=== PATIENT | male | born 1955 | race Caucasian/White ===

== ENCOUNTER 2018-09-23 09:32 | Emergency (ER) | payer OTHER ==
[~2018-09-23] VITALS: Wt 78.0 kg
[2018-09-23 09:36] VITALS: Wt 78.0 kg
[2018-09-23] MEDS ORDERED: KETOROLAC 30 MG INJ IV STA (10:08)
[2018-09-23] MEDS ORDERED: ONDANSETRON 4 MG INJ IV STA (10:08)
[2018-09-23] MEDS ORDERED: IBUP-1542 PO (11:56)
[2018-09-23] MEDS ORDERED: SENN-120 PO (11:56)
[2018-09-23] MEDS ORDERED: DOCU-144 PO (11:56)
--- NOTE | 2018-09-23 11:57 | ERD ---
ER Documentation Chief Complaint Chief Complaint AP X 1 MOS, DX H PYLORI, VOMITING HPI Patient is a 62-year-old male with no medical problems who presents with abdominal pain. The patient has had upper abdominal pain for the past 1 month. It was worsening. He denies fevers. He had vomiting but no diarrhea. He was recently diagnosed with H. pylori and has been taking medications for this. Upon review of old medical records this is the patient's first visit to the emergency department. He does not currently have a primary doctor. ROS All systems reviewed and are negative except as per history of present illness. Medications Home Meds Active Scripts Sennosides* (Senna Lax*) 8.6 Mg Tablet, 1 TAB PO DAILY, #30 TAB Prov:GODFREY SCHERER MD 09/23/18 Docusate Sodium* (Colace*) 100 Mg Capsule, 100 MG PO TID, #30 CAP Prov:GODFREY SCHERER MD 09/23/18 Ibuprofen* (Motrin*) 600 Mg Tab, 600 MG PO Q6H PRN for PAIN AND OR ELEVATED TEMP , #30 TAB Prov:GODFREY SCHERER MD 09/23/18 Reported Medications Bismuth Subsalicylate (Stomach Relief) 262 Mg Tab.chew, 262 MG PO Q6H, TAB.CHEW 09/23/18 Omeprazole* (Omeprazole*) 40 Mg Capsule.dr, 40 MG PO BID, #30 CAP 09/23/18 Amoxicillin* (Amoxicillin*) 500 Mg Cap, 1000 MG PO BID, #20 CAP START DATE 09/20/18 09/23/18 Metronidazole* (Metronidazole*) 500 Mg Tablet, 500 MG PO BID, TAB START DATE 09/20/18 09/23/18 Allergies Allergies: Coded Allergies: No Known Allergy (Unverified , 09/23/18) PMhx/Soc History of Surgery: No Anesthesia Reaction: No Hx Neurological Disorder: No Hx Respiratory Disorders: No Hx Cardiac Disorders: No Hx Psychiatric Problems: No Hx Miscellaneous Medical Probl: No Hx Alcohol Use: No Hx Substance Use: No Hx Tobacco Use: Yes Smoking Status: Current every day smoker FmHx Family History: No diabetes Physical Exam Vitals Vital Signs Date Temp Pulse Resp B/P (MAP) Pulse Ox O2 O2 Flow FiO2 Time Delivery Rate 09/23/18 98.1 79 18 128/77 96 Room Air 12:09 (94) 5/28/19 98.1 81 18 122/77 96 Room Air 11:30 (92) 09/23/18 98.1 99 18 177/83 99 09:36 (114) Physical Exam Const: No acute distress Head: Atraumatic Eyes: Normal Conjunctiva ENT: Normal External Ears, Nose and Mouth. Neck: Full range of motion. No meningismus. Resp: Clear to auscultation bilaterally Cardio: Regular rate and rhythm, no murmurs Abd: Soft, mild tenderness to palpation in the epigastric region without rebound or guarding Skin: No petechiae or rashes Back: No midline or flank tenderness Ext: No cyanosis, or edema Neur: Awake and alert Psych: Normal Mood and Affect Result Diagram: 09/23/18 1015 09/23/18 1030 Results 24 hrs Laboratory Tests Test 09/23/18 10:15 09/23/18 10:30 White Blood Count 10.3 10^3/ul Red Blood Count 5.25 10^6/ul Hemoglobin 14.8 g/dl Hematocrit 44.6 % Mean Corpuscular Volume 85.0 fl Mean Corpuscular Hemoglobin 28.2 pg Mean Corpuscular Hemoglobin Concent 33.2 g/dl Red Cell Distribution Width 15.6 % Platelet Count 301 10^3/UL Mean Platelet Volume 10.5 fl Immature Granulocytes % 0.400 % Neutrophils % 76.2 % Lymphocytes % 15.4 % Monocytes % 7.6 % Eosinophils % 0.0 % Basophils % 0.4 % Nucleated Red Blood Cells % 0.0 /100WBC Immature Granulocytes # 0.040 10^3/ul Neutrophils # 7.9 10^3/ul Lymphocytes # 1.6 10^3/ul Monocytes # 0.8 10^3/ul Eosinophils # 0.0 10^3/ul Basophils # 0.0 10^3/ul Nucleated Red Blood Cells # 0.0 10^3/ul Urine Color MIRELLA Urine Clarity CLEAR Urine pH 6.0 Urine Specific [place] 1.021 Urine Ketones NEGATIVE mg/dL Urine Nitrite NEGATIVE mg/dL Urine Bilirubin NEGATIVE mg/dL Urine Urobilinogen NEGATIVE mg/dL Urine Leukocyte Esterase TRACE Jose/ul Urine Microscopic RBC 5 /HPF Urine Microscopic WBC 1 /HPF Urine Mucus FEW /HPF Urine Hemoglobin 1+ mg/dL Urine Glucose NEGATIVE mg/dL Urine Total Protein 1+ mg/dl Sodium Level 138 mmol/L Potassium Level 4.2 mmol/L Chloride Level 99 mmol/L Carbon Dioxide Level 28 mmol/L Anion Gap 11 Blood Urea Nitrogen 12 mg/dl Creatinine 0.79 mg/dl Est Glomerular Filtrat Rate mL/min > 60 mL/min Glucose Level 135 mg/dl Calcium Level 10.0 mg/dl Total Bilirubin 0.6 mg/dl Direct Bilirubin 0.00 mg/dl Indirect Bilirubin 0.6 mg/dl Aspartate Amino Transf (AST/SGOT) 28 IU/L Alanine Aminotransferase (ALT/SGPT) 32 IU/L Alkaline Phosphatase 101 IU/L Troponin I < 0.012 ng/ml Total Protein 7.4 g/dl Albumin 4.3 g/dl Globulin 3.10 g/dl Albumin/Globulin Ratio 1.38 Lipase 105 U/L Current Medications Medications Dose Sig/Tessa Start Time Status Last (Trade) Ordered Route PRN Stop Time Admin Dose Reason Admin Ondansetron 4 mg ONCE STAT 09/23/18 DC 09/23/18 HCl (Zofran IV 10:08 10:38 Inj) 09/23/18 10:10 Ketorolac 30 mg ONCE STAT 09/23/18 DC 09/23/18 Tromethamine IV 10:08 10:37 (Toradol) 09/23/18 10:10 Procedures/MDM EKG read by me: Rate/Rhythm: Regular rate and rhythm at a rate of 80 Intervals: Normal Impression: No evidence of ischemia or arrhythmia CT abdomen pelvis read by radiology. Ultrasound of the gallbladder read by ra alexis. Smoking Cessation Therapy: Pt. was lectured for greater than 3 minutes on the health risks of continued smoking and the benefits of cessation. Patient is a 62-year-old male who presents with abdominal pain. Laboratory studies were basically normal. Ultrasound shows no cholecystitis. CT abdomen pelvis shows possible ileus versus obstruction with epiploic appendagitis. At this point I doubt appendicitis, cholecystitis, pancreatitis, or bowel obstruction. He said that he had a bowel movement today and feels much better after Toradol. He is otherwise well-appearing. I believe outpatient management is appropriate and he will be given a prescription for Colace, senna, and ibupr ofen. He can return for any worsening symptoms. Departure Diagnosis: Primary Impression: Abdominal pain Abdominal location: generalized Qualified Codes: R10.84 - Generalized abdominal pain Condition: Fair [facility] Usted se willard hecho un examen mdico de control que le indica que no est en gary condicin que requiera tratamiento urgente en el Departamento de Emergencia. Un estudio ms profundo y el tratamiento de jung condicin pueden esperar sin ningn riesgo hasta que usted sea atendida/o en el consultorio de jung mdico o gary clnica. Es responsabilidad suya arreglar gary aneesh para el seguimiento del manuel. MANEJO DE CONDICIONES NO URGENTES EN EL FUTURO 1) Si usted tiene un mdico de atencin primaria: Usted debera llamar a jung mdico de atencin primaria antes de venir al departamento de emergencia. Despus de las horas de consultorio, jung doctor o jung asociado/a est disponible por telfono. El mdico o enfermero de cynthia en el servicio telefnico puede asesorarle por cait medio para atender el problema, o manuel contrario se puede programar gary aneesh. 2) Si usted no tiene un mdico de atencin primaria: Llame al mdico o clnica de referencia que aparece abajo shane las horas de consultorio para hacer agry aneesh para que le vean. CLINICAS: [facility] [id number] [facility] [phone] [facility] [phone] [id number] [facility] [facility] [phone] [facility] [place] [phone] [address] [facility]. [phone] [address] Additional Instructions: Llame al doctor MAANA y patria gary ANEESH PARA DENTRO DE 1-2 FRAZIER.Dgale a la secretaria que nosotros le instruimos hacer esta aneesh.Avise o llame si jung condicin se empeora antes de la aneesh. Regresa aqui si peor o no mejor. GODFREY SCHERER MD September 23, 2018 11:57
[2018-09-23] MEDS ORDERED: METR-122 PO (12:05)
[2018-09-23] MEDS ORDERED: OMEP40CA6 PO (12:07)
[2018-09-23] MEDS ORDERED: AMOX500C2 PO (12:07)
[2018-09-23] MEDS ORDERED: [UNRECOGNIZED DRUG - CODE] PO (12:08)
[2018-09-23 12:09] VITALS: BP 128/77; PULSE 79; RESP 18
== END 2018-09-23 12:29 | disposition home or self-care (01) ==
LOC: E/R 09:32
DX: R10.84 Generalized abdominal pain (principal); F17.210 Nicotine dependence, cigarettes, uncomplicated; R11.10 Vomiting, unspecified
CPT/HCPCS: 36415; 74176; 76705; 80053; 81001; 83690; 84484; 85025; 93005; 96374; 96375; J1885; J2405; Z7502

== ENCOUNTER 2018-09-24 13:21 | Inpatient (IN) | payer OTHER ==
[~2018-09-24] VITALS: Ht 175.3 cm; Wt 77.0 kg
[~2018-09-24 13:21] MED LIST: AMOX500C2 PO; DOCU-144 PO; IBUP-1542 PO; METR-122 PO; OMEP40CA6 PO; SENN-120 PO; [UNRECOGNIZED DRUG - CODE] PO
[2018-09-24 13:24] VITALS: Ht 175.3 cm; Wt 77.0 kg
[2018-09-24] MEDS ORDERED: ONDANSETRON 4 MG INJ IV STA (14:51)
[2018-09-24] MEDS ORDERED: KETOROLAC 15 MG INJ IV STA (14:51)
[2018-09-24] MEDS ORDERED: SOD CHLORIDE 0.9% 1,000 ML IV STA (14:51)
--- NOTE | 2018-09-24 20:29 | ERD ---
ER Documentation Chief Complaint Chief Complaint INTERMITTENT ABD PAIN , VOMITING X 1 MONTH HPI 62-year-old male who presents to the emergency room with abdominal pain and vomiting. The patient has had several weeks of symptoms. He was seen here several weeks ago and had a CT that showed ileus. The patient describes persistent abdominal pain that is 8 out of 10 with associated nonbloody nonbilious emesis. Patient denies abdominal surgical history of history of hernia. No testicle pain or scrotal pain. 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 ROS All systems reviewed and are negative except as per history of present illness. Medications Home Meds Active Scripts Sennosides* (Senna Lax*) 8.6 Mg Tablet, 1 TAB PO DAILY, #30 TAB Prov:GODFREY SCHERER MD 09/23/18 Docusate Sodium* (Colace*) 100 Mg Capsule, 100 MG PO TID, #30 CAP Prov:GODFREY SCHERER MD 09/23/18 Ibuprofen* (Motrin*) 600 Mg Tab, 600 MG PO Q6H PRN for PAIN AND OR ELEVATED TEMP, #30 TAB Prov:GODFREY SCHERER MD 09/23/18 Reported Medications Bismuth Subsalicylate (Stomach Relief) 262 Mg Tab.chew, 262 MG PO Q6H, TAB.CHEW 09/23/18 Omeprazole* (Omeprazole*) 40 Mg Capsule.dr, 40 MG PO BID, #30 CAP 09/23/18 Amoxicillin* (Amoxicillin*) 500 Mg Cap, 1000 MG PO BID, #20 CAP START DATE 09/20/18 09/23/18 Metronidazole* (Metronidazole*) 500 Mg Tablet, 500 MG PO BID, TAB START DATE 09/20/18 09/23/18 Allergies Allergies: Coded Allergies: No Known Allergy (Unverified , 09/24/18) PMhx/Soc History of Surgery: No Anesthesia Reaction: No Hx Neurological Disorder: No Hx Respiratory Disorders: No Hx Cardiac Disorders: No Hx Psychiatric Problems: No Hx Miscellaneous Medical Probl: No Hx Alcohol Use: No Hx Substance Use: No Hx Tobacco Use: Yes Smoking Status: Never smoker FmHx Family History: No diabetes Physical Exam Vitals Vital Signs Date Temp Pulse Resp B/P (MAP) Pulse Ox O2 O2 Flow FiO2 Time Delivery Rate 09/24/18 73 25 142/80 91 Room Air 20:08 (100) 09/24/18 68 18 134/77 99 Room Air 18:26 (96) 09/24/18 98.1 65 18 155/81 98 Room Air 15:06 (105) 09/24/18 98.1 88 18 169/79 98 13:24 (109) Physical Exam General: Well developed, well nourished, no acute distress Head: Normocephalic, atraumatic. Eyes: Pupils equally reactive, EOM intact ENT: Moist mucous membranes Neck: Supple, no lymphadenopathy Respiratory: Lungs clear bilaterally, no distress Cardiovascular: RRR, no murmurs, rubs, or gallops Abdominal: Soft, protuberant, mild generalized tenderness without rebound or guarding : Deferred MSK: No edema, no unilateral swelling, 5/5 strength Neurologic: Alert and oriented, moving all extremities, normal speech, no focal weakness, no cerebellar signs Skin: No rash Psych: Normal mood Result Diagram: 09/24/18 1507 09/24/18 1507 Results 24 hrs Laboratory Tests Test 09/24/18 15:07 White Blood Count 10.7 10^3/ul Red Blood Count 5.21 10^6/ul Hemoglobin 14.6 g/dl Hematocrit 44.6 % Mean Corpuscular Volume 85.6 fl Mean Corpuscular Hemoglobin 28.0 pg Mean Corpuscular Hemoglobin Concent 32.7 g/dl Red Cell Distribution Width 15.6 % Platelet Count 286 10^3/UL Mean Platelet Volume 10.5 fl Immature Granulocytes % 0.500 % Neutrophils % 80.4 % Lymphocytes % 10.9 % Monocytes % 7.4 % Eosinophils % 0.3 % Basophils % 0.5 % Nucleated Red Blood Cells % 0.0 /100WBC Immature Granulocytes # 0.050 10^3/ul Neutrophils # 8.6 10^3/ul Lymphocytes # 1.2 10^3/ul Monocytes # 0.8 10^3/ul Eosinophils # 0.0 10^3/ul Basophils # 0.1 10^3/ul Nucleated Red Blood Cells # 0.0 10^3/ul Sodium Level 137 mmol/L Potassium Level 4.6 mmol/L Chloride Level 98 mmol/L Carbon Dioxide Level 30 mmol/L Anion Gap 9 Blood Urea Nitrogen 12 mg/dl Creatinine 0.80 mg/dl Est Glomerular Filtrat Rate mL/min > 60 mL/min Glucose Level 127 mg/dl Calcium Level 9.6 mg/dl Total Bilirubin 0.9 mg/dl Direct Bilirubin 0.00 mg/dl Indirect Bilirubin 0.9 mg/dl Aspartate Amino Transf (AST/SGOT) 48 IU/L Alanine Aminotransferase (ALT/SGPT) 48 IU/L Alkaline Phosphatase 119 IU/L Total Protein 7.8 g/dl Albumin 4.3 g/dl Globulin 3.50 g/dl Albumin/Globulin Ratio 1.22 Lipase 87 U/L Current Medications Medications Dose Sig/Tessa Start Time Status Last (Trade) Ordered Route PRN Stop Time Admin Dose Reason Admin Sodium 1,000 ml @ Q1H STAT 09/24/18 DC 09/24/18 Chloride 1,000 mls/hr IV 14:51 15:12 09/24/18 15:50 Ondansetron 4 mg ONCE STAT 09/24/18 DC 09/24/18 HCl (Zofran IV 14:51 15:11 Inj) 09/24/18 14:52 Ketorolac 15 mg ONCE STAT 09/24/18 DC 09/24/18 Tromethamine IV 14:51 15:12 (Toradol) 09/24/18 14:52 Procedures/MDM EKG, MONITORS, & DIAGNOSTIC IMAGING: CT a/p IMPRESSION: 1. MULTIPLE DILATED FLUID-FILLED LOOPS OF SMALL BOWEL, WITH TRANSITION POINT IN THE REGION OF THE ILEOCECAL JUNCTION. FINDINGS ARE HIGHLY CONCERNING FOR HIGH- GRADE SMALL BOWEL OBSTRUCTION. CANNOT EXCLUDE UNDERLYING STRICTURE OR MASS. FOLLOW-UP CT SCAN WITH IV AND ORAL CONTRAST MAY BE USEFUL FOR FURTHER EVALUATION. LARGE BOWEL LOOPS ARE PARTIALLY COLLAPSED. 2. Mild intra-abdominal/pelvic ascites. 3. Ill-defined 2.5 cm area of inflammatory changes within right upper quadrant and 2.7 cm ill-defined area of inflammatory changes within the left upper quadrant. Although this could represent omental infarct or epiploic appendagitis , malignancy is not completely excluded. Recommend follow-up contrast-enhanced CT scan. 4. No evidence of obstructive uropathy. 5. No evidence of free fluid or free air. No gross focal fluid collections. LAB INTERPRETATION: I reviewed the laboratory testing and it shows no evidence of acute process MEDICAL DECISION MAKING: Patient has persistent abdominal pain and decreased bowel movements in the setting of recent CT showing ileus. Concern for bowel obstruction. Repeat CT would be indicated. ER COURSE: * Laboratory testing reassuring but CT shows evidence of bowel obstruction near the ileocecal junction. Concern for possible malignancy or mass. Patient has been made n.p.o. NG tube placed. General surgeon notified. He will consult on the case. CONSULTATION: General surgeon, Dr. Gregory DISPOSITION PLAN: Medical surgical admission for management of small bowel obstruction Accepting care team and consultations: I discussed the current laboratory data, diagnostic imaging and emergency care provided. Admitting team: Dr. Alvarado Admitting team indication: Insurance directed Departure Diagnosis: Primary Impression: Small bowel obstruction Additional Impression: Generalized abdominal pain Condition: Stable ALDO COMBS MD September 24, 2018 20:29
[2018-09-24] MEDS ORDERED: NACL 0.9% 3 ML SYG IV SCH (21:30)
[2018-09-24] MEDS: FAMOTIDINE 20 MG INJ IV SCH (21:30)
[2018-09-24] MEDS ORDERED: KETOROLAC 15 MG INJ IV PRN (21:30)
[2018-09-24] MEDS: HEPARIN 5,000 UNIT/1 ML VIAL SC SCH (21:30)
[2018-09-24] MEDS ORDERED: ONDANSETRON 4 MG INJ IV PRN (21:30)
[2018-09-24] MEDS ORDERED: D5-NS + KCL 20 MEQ 1,000 ML IV SCH (21:30)
--- NOTE | 2018-09-24 21:40 | CONS ---
Assessment/Plan Assessment/Plan Hospital Course (Demo Recall) 62-year-old male who presents to the emergency room with abdominal pain and vomiting. CT scan showed dilated loops of small bowel with possible transitional point at the ileocecal valve that the mass or stricture cannot be ruled out. There is also free fluid above the right lobe of the liver. There is no biliary dilatation and no free air in the biliary tree. Patient is not tachycardic and his white count is normal. There is no lactate no evidence of acidosis. Given the above-mentioned findings I decided to give the patient 5 nasogastric suction and conservative treatment observation till tomorrow. If there is no improvement will take him to exploration Problems: (1) Small bowel obstruction Status: Acute (2) Abdominal pain Status: Acute Assessment/Plan (Daily) Small bowel obstruction until proven otherwise. Trial of conservative treatment. Will reassess tomorrow Consultation Date/Type/Reason Admit Date/Time Date of Consultation: September 24, 2018 Type of Consult Surgical Date/Time of Note DATE: 09/24/18 TIME: 21:35 Hx of Present Illness 62-year-old male with a history of back abdominal pain nausea and vomiting for the last few days. He was seen in the emergency room yesterday with the same complaints and CT scan was performed that showed slightly dilated loops of small bowel that was read as paralytic ileus. Patient was discharged home. However he continued to experience severe abdominal distention pain and vomiting so he decided to come to emergency room again. Patient also noted few episodes of diarrhea but his last bowel movement was yesterday and this the last time he passed gas. Constitutional: no complaints, improved Eyes: no complaints ENT: no complaints Respiratory: no complaints Cardiovascular: no complaints Gastrointestinal: no complaints, pain, nausea, vomiting, other (Abdominal distention) Musculoskeletal: no complaints Skin: no complaints Neurologic: no complaints Endocrine: no complaints Lymphatic: no complaints Psychological: no complaints, nl mood/affect Immunologic: no complaints Past Medical History Medical History: no pertinent history Home Meds Discontinued Reported Medications Bismuth Subsalicylate (Stomach Relief) 262 Mg Tab.chew, 262 MG PO Q6H, TAB.CHEW 09/23/18 Omeprazole* (Omeprazole*) 40 Mg Capsule.dr, 40 MG PO BID, #30 CAP 09/23/18 Amoxicillin* (Amoxicillin*) 500 Mg Cap, 1000 MG PO BID, #20 CAP START DATE 09/20/18 09/23/18 Metronidazole* (Metronidazole*) 500 Mg Tablet, 500 MG PO BID, TAB START DATE 09/20/18 09/23/18 Discontinued Scripts Sennosides* (Senna Lax*) 8.6 Mg Tablet, 1 TAB PO DAILY, #30 TAB Prov:GODFREY SCHERER MD 09/23/18 Docusate Sodium* (Colace*) 100 Mg Capsule, 100 MG PO TID, #30 CAP Prov:GODFREY SCHERER MD 09/23/18 Ibuprofen* (Motrin*) 600 Mg Tab, 600 MG PO Q6H PRN for PAIN AND OR ELEVATED TEMP, #30 TAB Prov:GODFREY SCHERER MD 09/23/18 Medications Current Medications IV Flush (NS 3 ml) 3 ml PER PROTOCOL IV ; Start 09/24/18 at 21:30 Ondansetron HCl (Zofran Inj) 4 mg Q6H PRN IV NAUSEA/VOMITING; Start 09/24/18 at 21:30 Acetaminophen (Tylenol Supp) 650 mg Q6H PRN CA .PAIN 1-3 OR TEMP; Start 09/24/18 at 21:30 Famotidine (Pepcid Iv) 20 mg Q12 IV ; Start 09/24/18 at 21:30 Heparin Sodium (Porcine) (Heparin (5000 Units/1ml)) 5,000 unit Q12 SC ; Start 09/24/18 at 21:30 Potassium Chloride/Dextrose/ Sod Cl 1,000 ml @ 100 mls/hr Q10H IV ; Start 09/24/18 at 21:30 Ketorolac Tromethamine (Toradol) 15 mg Q6 PRN IV PAIN; Start 09/24/18 at 21:30; Stop 09/27/18 at 21:29 Allergies: Coded Allergies: No Known Allergy (Unverified , 09/24/18) Past Surgical History Past Surgical Hx: no surgical history Family History Significant Family History: no pertinent family hx Social History Smoking Status: Never smoker Exam/Review of Systems Exam Vitals Vital Signs Date Temp Pulse Resp B/P (MAP) Pulse Ox O2 O2 Flow FiO2 Time Delivery Rate 09/24/18 73 25 142/80 91 Room Air 20:08 (100) 09/24/18 98.1 15:06 Constitutional: alert, oriented, well developed Psych: no complaints, nl mood/affect Head: normocephalic, atraumatic Eyes: nl conjunctiva, EOMI, nl lids, nl sclera, PERRL ENMT: nl external ears & nose, nl lips & teeth, nl nasal mucosa & septum Neck: supple, non-tender Respiratory: clear to auscultation, normal air movement Cardiovascular: regular rate and rhythm, nl pulses Gastrointestinal: soft, nl liver, spleen, non-tender, other (The abdomen is mildly distended however not tender at all.) Musculoskeletal: nl extremities to inspection, nl gait and stance Extremities: normal pulses 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, nl mental status, nl speech, nl strength Skin: nl turgor; No rash or lesions Lymph: nl lymph nodes Results Result Diagram: 09/24/18 1507 09/24/18 1507 Results 24hrs Laboratory Tests Test 09/24/18 15:07 White Blood Count 10.7 Red Blood Count 5.21 Hemoglobin 14.6 Hematocrit 44.6 Mean Corpuscular Volume 85.6 Mean Corpuscular Hemoglobin 28.0 L Mean Corpuscular Hemoglobin Concent 32.7 Red Cell Distribution Width 15.6 H Platelet Count 286 Mean Platelet Volume 10.5 H Immature Granulocytes % 0.500 H Neutrophils % 80.4 H Lymphocytes % 10.9 L Monocytes % 7.4 Eosinophils % 0.3 Basophils % 0.5 Nucleated Red Blood Cells % 0.0 Immature Granulocytes # 0.050 H Neutrophils # 8.6 H Lymphocytes # 1.2 Monocytes # 0.8 Eosinophils # 0.0 Basophils # 0.1 Nucleated Red Blood Cells # 0.0 Sodium Level 137 Potassium Level 4.6 Chloride Level 98 Carbon Dioxide Level 30 Anion Gap 9 Blood Urea Nitrogen 12 Creatinine 0.80 Est Glomerular Filtrat Rate mL/min > 60 Glucose Level 127 Calcium Level 9.6 Total Bilirubin 0.9 Direct Bilirubin 0.00 Indirect Bilirubin 0.9 Aspartate Amino Transf (AST/SGOT) 48 #H Alanine Aminotransferase (ALT/SGPT) 48 Alkaline Phosphatase 119 Total Protein 7.8 Albumin 4.3 Globulin 3.50 H Albumin/Globulin Ratio 1.22 Lipase 87 Medications Medication Current Medications IV Flush (NS 3 ml) 3 ml PER PROTOCOL IV ; Start 09/24/18 at 21:30 Ondansetron HCl (Zofran Inj) 4 mg Q6H PRN IV NAUSEA/VOMITING; Start 09/24/18 at 21:30 Acetaminophen (Tylenol Supp) 650 mg Q6H PRN CA .PAIN 1-3 OR TEMP; Start 09/24/18 at 21:30 Famotidine (Pepcid Iv) 20 mg Q12 IV ; Start 09/24/18 at 21:30 Heparin Sodium (Porcine) (Heparin (5000 Units/1ml)) 5,000 unit Q12 SC ; Start 09/24/18 at 21:30 Potassium Chloride/Dextrose/ Sod Cl 1,000 ml @ 100 mls/hr Q10H IV ; Start 09/24/18 at 21:30 Ketorolac Tromethamine (Toradol) 15 mg Q6 PRN IV PAIN; Start 09/24/18 at 21:30; Stop 09/27/18 at 21:29 TIFFANY WILCOX MD September 24, 2018 21:40
[2018-09-24 23:00] VITALS: BP 153/72; PULSE 75; RESP 18
[2018-09-25] VITALS (27 sets, daily range): BP systolic 101–169; BP diastolic 56–86; PULSE 66–100; RESP 13–21
[2018-09-25] MEDS: FAMOTIDINE 20 MG INJ IV SCH ×3 (00:10→22:28)
[2018-09-25] MEDS: HEPARIN 5,000 UNIT/1 ML VIAL SC SCH ×3 (00:16→21:00)
[2018-09-25] MEDS: DEXTROSE 5%-0.9% NACL 1,000 ML IV SCH ×3 (00:19→20:00)
[2018-09-25] MEDS: ALBUTEROL/IPRATROPIUM (NEB) 3 ML AMP HHN SCH ×3 (13:00→21:18)
--- NOTE | 2018-09-25 13:08 | CONS ---
Assessment/Plan Assessment/Plan Hospital Course (Demo Recall) Preoperative cardiac risk stratification Small bowel obstruction Tobacco use -Patient plan for abdominal surgery -As mentioned in history, patient with excellent exercise capacity with no exert ional symptoms -No significant ischemic abnormalities on ECG. -Patient is at a low to intermediate risk for any untoward cardiac events for abdominal surgery. The benefits likely outweigh the risks. Consultation Date/Type/Reason Admit Date/Time Type of Consult Cardiology Reason for Consultation Preoperative cardiac risk stratification Date/Time of Note DATE: 09/25/18 TIME: 13:00 Hx of Present Illness This is a 62-year-old male with no significant past medical history who presents with worsening abdominal pain to the emergency room. Patient with presumed small bowel obstruction as per medical records and is possibly plan for abdominal surgery. Cardiology consultation is requested for preoperative cardiac risk stratification. 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 With these activities, he denies exertional chest pain, shortness of breath, palpitations, dizziness, or syncope. He denies any cardiac history or procedures. 12 point review of systems was performed with all pertinent positives and negatives mentioned above and all else is negative Past Medical History Medical History: no pertinent history Home Meds Discontinued Reported Medications Bismuth Subsalicylate (Stomach Relief) 262 Mg Tab.chew, 262 MG PO Q6H, TAB.CHEW 09/23/18 Omeprazole* (Omeprazole*) 40 Mg Capsule.dr, 40 MG PO BID, #30 CAP 09/23/18 Amoxicillin* (Amoxicillin*) 500 Mg Cap, 1000 MG PO BID, #20 CAP START DATE 09/20/18 09/23/18 Metronidazole* (Metronidazole*) 500 Mg Tablet, 500 MG PO BID, TAB START DATE 09/20/18 09/23/18 Discontinued Scripts Sennosides* (Senna Lax*) 8.6 Mg Tablet, 1 TAB PO DAILY, #30 TAB Prov:GODFREY SCHERER MD 09/23/18 Docusate Sodium* (Colace*) 100 Mg Capsule, 100 MG PO TID, #30 CAP Prov:GODFREY SCHERER MD 09/23/18 Ibuprofen* (Motrin*) 600 Mg Tab, 600 MG PO Q6H PRN for PAIN AND OR ELEVATED TEMP, #30 TAB Prov:GODFREY SCHERER MD 09/23/18 Medications Current Medications IV Flush (NS 3 ml) 3 ml PER PROTOCOL IV ; Start 09/24/18 at 21:30 Ondansetron HCl (Zofran Inj) 4 mg Q6H PRN IV NAUSEA/VOMITING; Start 09/24/18 at 21:30 Acetaminophen (Tylenol Supp) 650 mg Q6H PRN [place] .PAIN 1-3 OR TEMP; Start 09/24/18 at 21:30 Famotidine (Pepcid Iv) 20 mg Q12 IV Last administered on 09/25/18at 08:56; Admin Dose 20 MG; Start 09/24/18 at 21:30 Heparin Sodium (Porcine) (Heparin (5000 Units/1ml)) 5,000 unit Q12 SC Last administered on 09/25/18at 00:16; Admin Dose 5,000 UNIT; Start 09/24/18 at 21:30 Ketorolac Tromethamine (Toradol) 15 mg Q6 PRN IV PAIN; Start 09/24/18 at 21:30; Stop 09/27/18 at 21:29 Dextrose/Sodium Chloride 1,000 ml @ 100 mls/hr Q10H IV Last administered on 09/25/18at 10:37; Admin Dose 100 MLS/HR; Start 09/25/18 at 00:00 Albuterol/ Ipratropium (Duoneb) 3 ml Q4H RESP THERAPY HHN ; Start 09/25/18 at 13:00 Allergies: Coded Allergies: No Known Allergy (Unverified , 09/24/18) Past Surgical History Past Surgical Hx: no surgical history Social History Smoking Status: Current some day smoker 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 Exam/Review of Systems Vital Signs Vitals Vital Signs Date Temp Pulse Resp B/P (MAP) Pulse Ox O2 O2 Flow FiO2 Time Delivery Rate 09/25/18 99.0 66 18 132/69 95 Room Air 07:52 (90) Intake and Output 09/24/18 09/24/18 09/25/18 1515:00 23:00 07:00 IntakeIntake Total 700 ml OutputOutput Total 300 ml 100 ml BalanceBalance -300 ml 600 ml Exam Constitutional: alert, oriented, well developed (No apparent distress) ENMT: other (NG tube present) Respiratory: clear to auscultation, normal air movement Cardiovascular: regular rate and rhythm (S1-S2 heard) Gastrointestinal: soft, distended, tender Extremities: other (No significant edema) Labs Result Diagram: 09/25/18 0444 09/25/18 0444 Results 24hrs Laboratory Tests Test 09/24/18 15:07 09/25/18 04:44 09/25/18 10:19 White Blood Count 10.7 10.1 Red Blood Count 5.21 4.82 Hemoglobin 14.6 13.6 L Hematocrit 44.6 41.7 L Mean Corpuscular Volume 85.6 86.5 Mean Corpuscular Hemoglobin 28.0 L 28.2 L Mean Corpuscular Hemoglobin Concent 32.7 32.6 Red Cell Distribution Width 15.6 H 15.8 H Platelet Count 286 268 Mean Platelet Volume 10.5 H 11.4 H Immature Granulocytes % 0.500 H 0.500 H Neutrophils % 80.4 H 77.6 H Lymphocytes % 10.9 L 12.2 L Monocytes % 7.4 8.0 Eosinophils % 0.3 1.2 Basophils % 0.5 0.5 Nucleated Red Blood Cells % 0.0 0.0 Immature Granulocytes # 0.050 H 0.050 H Neutrophils # 8.6 H 7.9 H Lymphocytes # 1.2 1.2 Monocytes # 0.8 0.8 Eosinophils # 0.0 0.1 Basophils # 0.1 0.1 Nucleated Red Blood Cells # 0.0 0.0 Sodium Level 137 137 Potassium Level 4.6 4.3 Chloride Level 98 102 Carbon Dioxide Level 30 29 Anion Gap 9 6 Blood Urea Nitrogen 12 11 Creatinine 0.80 0.78 Est Glomerular Filtrat Rate mL/min > 60 > 60 Glucose Level 127 119 Calcium Level 9.6 8.7 Total Bilirubin 0.9 Direct Bilirubin 0.00 Indirect Bilirubin 0.9 Aspartate Amino Transf (AST/SGOT) 48 #H Alanine Aminotransferase (ALT/SGPT) 48 Alkaline Phosphatase 119 Total Protein 7.8 Albumin 4.3 Globulin 3.50 H Albumin/Globulin Ratio 1.22 Lipase 87 Hemoglobin A1c 5.8 Thyroid Stimulating Hormone (TSH) 1.130 Prothrombin Time 12.7 Prothrombin Time Ratio 1.0 INR International Normalized Ratio 0.94 Activated Partial Thromboplast Time 25.5 Imaging Imaging ECG sinus rhythm at 64 bpm, poor R wave progression, QRS 65 ms, no significant ischemic ST abnormalities Medications Medications Current Medications IV Flush (NS 3 ml) 3 ml PER PROTOCOL IV ; Start 09/24/18 at 21:30 Ondansetron HCl (Zofran Inj) 4 mg Q6H PRN IV NAUSEA/VOMITING; Start 09/24/18 at 21:30 Acetaminophen (Tylenol Supp) 650 mg Q6H PRN [place] .PAIN 1-3 OR TEMP; Start 09/24/18 at 21:30 Famotidine (Pepcid Iv) 20 mg Q12 IV Last administered on 09/25/18at 08:56; Admin Dose 20 MG; Start 09/24/18 at 21:30 Heparin Sodium (Porcine) (Heparin (5000 Units/1ml)) 5,000 unit Q12 SC Last administered on 09/25/18at 00:16; Admin Dose 5,000 UNIT; Start 09/24/18 at 21:30 Ketorolac Tromethamine (Toradol) 15 mg Q6 PRN IV PAIN; Start 09/24/18 at 21:30; Stop 09/27/18 at 21:29 Dextrose/Sodium Chloride 1,000 ml @ 100 mls/hr Q10H IV Last administered on 09/25/18at 10:37; Admin Dose 100 MLS/HR; Start 09/25/18 at 00:00 Albuterol/ Ipratropium (Duoneb) 3 ml Q4H RESP THERAPY N ; Start 09/25/18 at 13:00 Arron Carl DO September 25, 2018 13:08
--- NOTE | 2018-09-25 14:39 | HP ---
DATE OF ADMISSION: 09/25/2018 CHIEF COMPLAINT: Abdominal pain associated with vomiting and diarrhea. HISTORY OF PRESENT ILLNESS: A 62-year-old male with history of heavy tobacco use, presented to the e mergency room with 2 weeks of diffuse abdominal discomfort associated with vomiting and diarrhea. Th e patient denies hematemesis. No bright red blood per rectum or melena. The patient has not had any flatus or bowel movements since admission. Initial evaluation included a CAT scan of the abdomen an d pelvis. This study showed multiple dilated fluid-filled loops of small bowel with transition point in the region of the ileocecal junction. Findings were consistent for high-grade small-bowel obstru ction. Despite NG tube suction, his symptoms have not improved. PAST MEDICAL HISTORY: COPD. PAST SURGICAL HISTORY: None. SOCIAL HISTORY: The patient smokes 1 pack of cigarettes per day and drinks alcohol on social occasio ns. PHYSICAL EXAMINATION: GENERAL: Well-developed, well-nourished male who is in no apparent distress. VITAL SIGNS: Stable. He is afebrile. HEENT: Extraocular muscles are intact. Pupils are equal and reactive to light bilaterally. Sclerae are anicteric. Oropharynx is clear and moist. NECK: Supple. No JVD, no carotid bruits. LUNGS: Mild expiratory wheezes bilaterally. CARDIAC: Regular rate and rhythm. ABDOMEN: Soft, nontender, nondistended, hypoactive bowel sounds. EXTREMITIES: No clubbing, cyanosis or edema. NEUROLOGICAL: Nonfocal. LABORATORY DATA: WBC 10.1, hemoglobin 13.6, platelet count 268,000. Basic metabolic panel within no rmal limits. Liver function test within normal limits. Albumin 4.3. TSH 1.13. Hemoglobin A1c is 5 .8. ASSESSMENT: 1. A 62-year-old male with 2 weeks of abdominal pain associated with vomiting and diarrhea. He is n ow found to have small-bowel obstruction. We need to rule out colonic mass or adhesion. 2. Chronic obstructive pulmonary disease with mild exacerbation. 3. Chronic smoker. PLAN: Admit to med/surg. Keep n.p.o. NG tube to suction. DuoNeb unit dose q.4 hours. 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 Wilcox. Plan of care was discussed with the patient and his renee ghter at the bedside. Dictated By: LOY SONI/NTS Conf#: [id number] DID#: [id number] CC: GUSTAVO LORENZO MD; TIFFANY WILCOX MD;*EndCC*
--- NOTE | 2018-09-25 16:01 | PN ---
Date/Time of Note Date/Time of Note DATE: 09/25/18 TIME: 15:58 Assessment/Plan Lines/Catheters IV C[facility]ter Type (from [facility]): Peripheral IV Assessment/Plan Chief Complaint/Hosp Course Patient is patient is more than 24 hours after admission for small bowel obstruction without previous surgery. In spite of the lack of the ischemia signs I feel that the patient needs to go to the surgery soon as possible since there is no improvement and the CT scan findings are consistent with the distal complete small bowel obstruction. Assessment/Plan Patient is consented for exploratory laparoscopy possible laparotomy possible bowel resection. We discussed risks and benefits were discussed possible side effects, possible complications including but not limited to bleeding, infection, injury to other organs, anesthesia complication, patient understood risk and benefits and wished to proceed. Subjective 24 Hr Interval Summary There is no evidence of improvement overnight, patient still with signs of bowel obstruction, no flatus no bowel movements, NG tube drains feculent material. However subjectively patient feels comfortable. Feeding: NPO Pain Control: mild Exam/Review of Systems Vital Signs Vitals Vital Signs Date Temp Pulse Resp B/P (MAP) Pulse Ox O2 O2 Flow FiO2 Time Delivery Rate 09/25/18 99.6 69 18 134/65 96 Room Air 14:59 (88) Intake and Output 09/24/18 09/24/18 09/25/18 1515:00 23:00 07:00 IntakeIntake Total 700 ml OutputOutput Total 300 ml 100 ml BalanceBalance -300 ml 600 ml Exam Constitutional: alert, oriented, well developed Psych: no complaints, nl mood/affect Head: normocephalic, atraumatic Eyes: nl conjunctiva, EOMI, nl lids, nl sclera ENMT: nl external ears & nose, nl lips & teeth, nl nasal mucosa & septum, mucosa pink and moist Neck: supple, non-tender Respiratory: clear to auscultation, normal air movement Cardiovascular: regular rate and rhythm, nl pulses Gastrointestinal: soft, nl liver, spleen, distended, other (Mild tenderness around the umbilicus.) Musculoskeletal: nl extremities to inspection, nl gait and stance Extremities: normal pulses Neurological: SWINE NUTRITIONIST II-XII intact, nl mental status, nl speech, nl strength Skin: nl turgor, rash or lesions Lymph: nl lymph nodes Results Result Diagram: 09/25/1844309/25/18443 TIFFANY WILCOX MD September 25, 2018 16:01
--- NOTE | 2018-09-25 16:47 | PREAC ---
Date/Time of Note Date/Time of Note DATE: 09/25/18 TIME: 16:45 Anesthesia Eval and Record Evaluation Time Pre-Procedure Interview DATE: 09/25/18 TIME: 16:45 Age 62 Sex male NPO: 8 hrs Preoperative diagnosis Abdominal pain Planned procedure Exploratory laparotomy Past Medical History Past Medical History: Includes GI: GERD, Morbid obesity Surgery & Anesthesia Issues No known issue Meds Anticoagulation: No Beta Sushil within 24 hr: No Reason Beta Sushil not given: Pt. not on B-Sushil Discontinued Reported Medications Bismuth Subsalicylate (Stomach Relief) 262 Mg Tab.chew, 262 MG PO Q6H, TAB.CHEW 09/23/18 Omeprazole* (Omeprazole*) 40 Mg Capsule.dr, 40 MG PO BID, #30 CAP 09/23/18 Amoxicillin* (Amoxicillin*) 500 Mg Cap, 1000 MG PO BID, #20 CAP START DATE 09/20/18 09/23/18 Metronidazole* (Metronidazole*) 500 Mg Tablet, 500 MG PO BID, TAB START DATE 09/20/18 09/23/18 Discontinued Scripts Sennosides* (Senna Lax*) 8.6 Mg Tablet, 1 TAB PO DAILY, #30 TAB Prov:GODFREY SCHERER MD 09/23/18 Docusate Sodium* (Colace*) 100 Mg Capsule, 100 MG PO TID, #30 CAP Prov:GODFREY SCHERER MD 09/23/18 Ibuprofen* (Motrin*) 600 Mg Tab, 600 MG PO Q6H PRN for PAIN AND OR ELEVATED TEMP, #30 TAB Prov:GODFREY SCHERER MD 09/23/18 Current Medications IV Flush (NS 3 ml) 3 ml PER PROTOCOL IV ; Start 09/24/18 at 21:30 Ondansetron HCl (Zofran Inj) 4 mg Q6H PRN IV NAUSEA/VOMITING; Start 09/24/18 at 21:30 Acetaminophen (Tylenol Supp) 650 mg Q6H PRN [place] .PAIN 1-3 OR TEMP; Start 09/24/18 at 21:30 Famotidine (Pepcid Iv) 20 mg Q12 IV Last administered on 09/25/18at 08:56; Admin Dose 20 MG; Start 09/24/18 at 21:30 Heparin Sodium (Porcine) (Heparin (5000 Units/1ml)) 5,000 unit Q12 SC Last administered on 09/25/18at 00:16; Admin Dose 5,000 UNIT; Start 09/24/18 at 21:30 Ketorolac Tromethamine (Toradol) 15 mg Q6 PRN IV PAIN; Start 09/24/18 at 21:30; Stop 09/27/18 at 21:29 Dextrose/Sodium Chloride 1,000 ml @ 100 mls/hr Q10H IV Last administered on 09/25/18at 10:37; Admin Dose 100 MLS/HR; Start 09/25/18 at 00:00 Albuterol/ Ipratropium (Duoneb) 3 ml Q4H RESP THERAPY HHN Last administered on 09/25/18at 16:04; Admin Dose 3 ML; Start 09/25/18 at 13:00 Meds reviewed: Yes Allergies Coded Allergies: No Known Allergy (Unverified , 09/24/18) Allergies Reviewed: Yes Labs/Studies Labs Reviewed: Reviewed by anesthesiologist Result Diagram: 09/25/18 0444 09/25/18 0444 Laboratory Tests 09/25/18 04:44 test: N/A Studies: ECG Pre-procedure Exam Last vitals Vital Signs Date Temp Pulse Resp B/P (MAP) Pulse Ox O2 O2 Flow FiO2 Time Delivery Rate 09/25/18 99.6 69 18 134/65 96 Room Air 14:59 (88) Airway: Adequate mouth opening, Adequate thyromental dist Mallampati: Mallampati III Teeth: Normal Lung: Normal Heart: Normal ASA Physical Status ASA physical status: 3 Emergency: E Planned Anesthetic General/MAC: ETT Neuraxial: Spinal Planned Pain Management Sub-arachniod narcotics, Single shot nerve block, Local by surgeon Pre-operative Attestations Prior to commencing anesthesia and surgery, the patient was re-evaluated, there was verification of: *The patient's identity *The results of appropriate recent lab work and preoperative vital signs *The above evaluation not changing prior to induction *Anesthetic plan, risk benefits, alternative and complications discussed with patient/family; questions answered; patient/family understands, accepts and wishes to proceed. YARED MATA MD September 25, 2018 16:47
[2018-09-25] MEDS ORDERED: MIDAZOLAM 1 MG/ML 2 ML INJ ONE (16:51)
[2018-09-25] MEDS ORDERED: BUPIVACAINE 0.5%/EPI (SDV) 10 ML INJ ONE ×2 (16:54)
[2018-09-25] MEDS ORDERED: PIPER-TAZO 3.375 GM IV (PMX) 100 ML ONE (17:10)
--- NOTE | 2018-09-25 17:24 | RADRPT ---
Echocardiogram Report Patient Name: Guadalupe FRAUSTOnt ID: [id number] : 1955 (62y 10m)Study Date: 09/25/2018 11:34:41 AM Gender: MAccession #: [id number] Tech: Dilan Hastings [facility] Location: [id number] Ref.Physician: LOY ADAME Height(Cm): BSA: Weight(Kg): Quality: AdequateOrder Physician: LOY ADAME Account #: Procedures: Echocardiographic Report: Transthoracic echocardiogram with complete 2D, M-Mode, and doppler examination. Indications: Evaluate Left Ventricular function. Measurements: 2D/M Mode Doppler Measurement Value Normal Range Measurement Value Normal Range LVIDd 2D 4.8 [ 4.2 - 5.8 ] cm AV Peak Boaz 1.5 [ 100.0 - 170.0 ] cm/sec LVIDs 2D 2.4 [ 2.5 - 4.0 ] cm AV Peak PG 10.0 [ 2.0 - 9.0 ] mmHg LVPWd 2D 0.9 [ 0.6 - 1.0 ] cm LVOT Peak Boaz 1.2 [ 70.0 - 110.0 ] cm/sec IVSd 2D 0.9 [ 0.6 - 1.0 ] cm LVOT Peak PG 6.0 [ 2.0 - 6.0 ] mmHg AoR Diam 2D 2.6 [ 2.6 - 3.4 ] cm MV E Peak Boaz 0.7 [ 60.0 - 130.0 ] cm/sec EDV 2D 107.0 [ 62.0 - 150.0 ] ml MV A Peak Boaz 0.9 [ 100.0 - 120.0 ] cm/sec ESV 2D 20.2 [ 21.0 - 61.0 ] ml MV E/A 0.8 [ 0.8 - 1.5 ] ratio EF 2D 81.1 [ 52.0 - 72.0 ] percent MV Decel Time 215 [ 104 - 258 ] msec LA Dimen 2D 3.3 [ 3.0 - 4.0 ] cm Lat E` Boaz 0.1 [ 10.0 - 15.0 ] cm/sec Lateral E/E` 5.2 [ 1.0 - 2.0 ] ratio MV E/A 0.8 [ 0.8 - 1.5 ] ratio Findings: Left Ventricle: Normal left ventricular systolic function. Normal left ventricular cavity size. Normal left ventricular wall thickness. Ejection fraction is visually estimated at 65 %. Tissue Doppler/Mitral Doppler indices are consistent with impaired relaxation (Stage I diastolic dysfunction). Right Ventricle: Normal right ventricular size. Normal right ventricular systolic function. Left Atrium: The left atrium is normal in size. Right Atrium: The right atrium is normal in size. Mitral Valve: Normal appearance and function of the mitral valve with trace physiologic regurgitation. Aortic Valve: Normal appearance of the aortic valve. No significant aortic stenosis or insufficiency. Tricuspid Valve: Normal appearance and function of the tricuspid valve with trace physiologic regurgitation. Pulmonic Valve: Pulmonic valve not well visualized. Pericardium: Normal pericardium with no significant pericardial effusion. Aorta: Normal aortic root. IVC: Normal size and normal respiratory collapse consistent with normal right atrial pressure. Conclusions: Normal left ventricular systolic function. Normal left ventricular cavity size. Normal left ventricular wall thickness. Ejection fraction is visually estimated at 65 %. Tissue Doppler/Mitral Doppler indices are consistent with impaired relaxation (Stage I diastolic dysfunction). Normal right ventricular size. Normal right ventricular systolic function. The left atrium is normal in size. The right atrium is normal in size. No significant valvular stenosis or regurgitation seen. Normal pericardium with no significant pericardial effusion. Electronically Signed By: Arron Carl 2018-09-25 17:23:39 PDT
[2018-09-25] MEDS ORDERED: NEOSTIGMINE 3 MG/3 ML SYRINGE ONE (18:27)
[2018-09-25] MEDS ORDERED: ROCURONIUM 50 MG INJ ONE (18:27)
[2018-09-25] MEDS ORDERED: LIDOCAINE 2% (SDV) 5 ML INJ ONE (18:27)
[2018-09-25] MEDS ORDERED: ONDANSETRON 4 MG INJ ONE (18:27)
[2018-09-25] MEDS ORDERED: ETOMIDATE 20 MG INJ ONE (18:27)
[2018-09-25] MEDS ORDERED: GLYCOPYRROLATE 0.4 MG INJ ONE (18:27)
[2018-09-25] MEDS ORDERED: ROPIVACAINE 0.5 % 30 ML VIAL ONE (18:37)
--- NOTE | 2018-09-25 18:55 | OPR ---
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 Procedure Description Patient was brought to operating room after detailed discussion with him and the family regarding the nature of the procedure. We discussed risks and benefits we discussed possible complications including but not limited to infection bleeding injury to other organs leakage cardiac and pulmonary complications. Patient was positioned supine general endotracheal anesthesia was induced. The abdomen was prepped and draped in usual sterile fashion. The urinary bladder was decompressed with a Holden catheter. Patient had already NG tube placed previously. Antibiotic antibiotics prophylaxis was initiated. After that the Veress needle was placed in the left subcostal position and the abdomen was insufflated with CO2 up to 15 mmHg. After this 5 mm trocar was placed in the left paramedian position and 5 mm camera was used to visualize the contents of abdominal cavity. Additional 5 mm trocar was placed in the right subcostal position. The abdomen was inspected and the right colon mass became visible that cause complete obstruction of small bowel. The decision was made to convert to open procedure. Abdomen was desufflated trochars were removed. Midline laparotomy was performed. The wound retractor was placed along with wound protector. I started procedure by removing most of the dilated small bowel outside the abdominal cavity in order to achieve access to the right colon the small bowel bowel was very dilated and it was very difficult to visualize the right colon. However I was succeeded to perform mobilization of the right colon starting from the ileocecal valve up to hip hepatic flexure. The tumor was found to be invading the abdominal wall that I used blunt dissection to dissect the tumor off the abdominal wall. That resulted in small perforation but which was immediately controlled. No spillage or cleared. After mobilized the right colon I clearly identified the right ureter that are completely preserved. The residual tumor that was adjusting to the abdominal wall I excised completely in addition. After that I performed the resection of the terminal ileum approximately 15 cm distally to the ileocecal valve and the right colon was divided at the mid between cecum and the hepatic flexure. After that the small bowel was brought along the right colon and [id number] anatomically or N2 and functional anastomosis was performed using ASHWIN 100 mm. The common enterotomy was closed using TA 60 mm stapler. The mesentery was approximated with running 2-0 Vicryl suture. After the bowel was appropriately oriented and the small bowel was returned back to the abdominal cavity. The abdominal cavity was irrigated with copious amount of warm normal saline. After that the mid laparotomy was closed by running PDS suture and the skin was approximated with skin stapler. Patient tolerated procedure well was extubated after tap block was performed by anesthesiologist. Treatments and sponge counts were correct x2 TIFFANY WILCOX MD September 25, 2018 18:55
[2018-09-25] MEDS ORDERED: ONDANSETRON 4 MG INJ IV PRN ×2 (19:00→19:30)
[2018-09-25] MEDS ORDERED: CEFTRIAXONE 1 GM/50 ML (PMX) 50 ML IVPB SCH (19:00)
[2018-09-25] MEDS ORDERED: KETOROLAC 30 MG INJ IV PRN (19:00)
[2018-09-25] MEDS ORDERED: DIPHENHYDRAMINE 50 MG INJ IV PRN ×2 (19:00→19:30)
--- NOTE | 2018-09-25 19:14 | PAC ---
Date/Time of Note Date/Time of Note DATE: 09/25/18 TIME: 19:13 Post-Anesthesia Notes Post-Anesthesia Note Last documented vital signs Vital Signs Date Temp Pulse Resp B/P (MAP) Pulse Ox O2 O2 Flow FiO2 Time Delivery Rate 09/25/18 98.0 18:48 09/25/18 69 18 134/65 96 Room Air 14:59 (88) Activity: WNL Respiratory function: WNL Cardiovascular function: WNL Mental status: Baseline Pain reasonably controlled: Yes Hydration appropriate: Yes Nausea/Vomiting absent: Yes Comments BP:112/67, P:88, Spo2:100%, T: 99 YARED MATA MD September 25, 2018 19:14
[2018-09-25] MEDS ORDERED: HYDROmorphONE 1 MG/5 ML IV SYRINGE IV PRN ×2 (19:30)
[2018-09-25] MEDS ORDERED: METOCLOPRAMIDE 10 MG INJ IV PRN (19:30)
[2018-09-25] MEDS ORDERED: FENTAnyl 50 MCG/ML VIAL IV PRN (19:30)
[2018-09-25] MEDS ORDERED: MEPERIDINE 25 MG INJ IV PRN (19:30)
[2018-09-25] MEDS ORDERED: HYDROmorphONE 0.2 MG/ML PCA IV SCH (19:30)
[2018-09-25] MEDS: D5W-0.45 NACL + KCL 20 MEQ 1,000 ML IV SCH (22:39)
[2018-09-25] MEDS: metroNIDAZOLE 500 MG/NS (PMX) 100 ML IVPB SCH (23:26)
[2018-09-26] VITALS (7 sets, daily range): BP systolic 98–130; BP diastolic 57–67; PULSE 80–127; RESP 16–20
[2018-09-26] MEDS: ALBUTEROL/IPRATROPIUM (NEB) 3 ML AMP HHN SCH ×6 (02:01→20:03)
[2018-09-26] MEDS: D5W-0.45 NACL + KCL 20 MEQ 1,000 ML IV SCH ×3 (04:40→22:22)
[2018-09-26] MEDS ORDERED: PANTOPRAZOLE 40 MG INJ IV SCH (06:00)
[2018-09-26] MEDS: metroNIDAZOLE 500 MG/NS (PMX) 100 ML IVPB SCH ×2 (06:29→14:00)
[2018-09-26] MEDS: FAMOTIDINE 20 MG INJ IV SCH ×2 (09:10→20:18)
[2018-09-26] MEDS: HEPARIN 5,000 UNIT/1 ML VIAL SC SCH ×2 (09:18→20:21)
--- NOTE | 2018-09-26 10:16 | PN ---
Date/Time of Note Date/Time of Note DATE: 09/26/18 TIME: 10:13 Subjective Doing well. Pain is well controlled. No flatus. Objective Vitals Vital Signs Date Temp Pulse Resp B/P (MAP) Pulse Ox O2 O2 Flow FiO2 Time Delivery Rate 09/26/18 87 20 93 Nasal 2.0 27 09:14 Cannula 09/26/18 98.6 105/57 07:58 (73) Intake and Output 09/25/18 09/25/18 09/26/18 1515:00 23:00 07:00 IntakeIntake Total 500 ml 2350 ml 700 ml OutputOutput Total 225 ml 715 ml BalanceBalance 500 ml 2125 ml -15 ml Decreased breath sounds at bases Regular rate and rhythm Soft. Diffusely tender. Decreased bowel sounds No edema Nonfocal Results Result Diagram: 09/26/18 0510 09/26/18 0510 Medications Medications Current Medications IV Flush (NS 3 ml) 3 ml PER PROTOCOL IV ; Start 09/24/18 at 21:30 Acetaminophen (Tylenol Supp) 650 mg Q6H PRN [place] .PAIN 1-3 OR TEMP; Start 09/24/18 at 21:30 Famotidine (Pepcid Iv) 20 mg Q12 IV Last administered on 09/26/18at 09:10; Admin Dose 20 MG; Start 09/24/18 at 21:30 Albuterol/ Ipratropium (Duoneb) 3 ml Q4H RESP THERAPY HHN Last administered on 09/26/18at 09:13; Admin Dose 3 ML; Start 09/25/18 at 13:00 Metronidazole 100 ml @ 100 mls/hr Q8 IVPB Last administered on 09/26/18at 06:29; Admin Dose 100 MLS/HR; Start 09/25/18 at 22:00; Stop 09/26/18 at 14:59 Hydromorphone HCl (Dilaudid) 0.5 mg Q6H PRN IV BREAKTHROUGH PAIN; Start 09/25/18 at 19:00 Ketorolac Tromethamine (Toradol) 30 mg Q6H PRN IV PAIN; Start 09/25/18 at 19:00; Stop 09/28/18 at 18:59 Diphenhydramine HCl (Benadryl) 25 mg Q6H PRN IV ITCHING; Start 09/25/18 at 19:00 Ondansetron HCl (Zofran Inj) 4 mg Q6H PRN IV NAUSEA AND/OR VOMITING; Start 09/25/18 at 19:00 Potassium Chloride/Dextrose/ Sod Cl 1,000 ml @ 100 mls/hr Q10H IV Last administered on 09/25/18at 22:39; Admin Dose 100 MLS/HR; Start 09/25/18 at 18:40 Heparin Sodium (Porcine) (Heparin (5000 Units/1ml)) 5,000 unit Q12 SC Last administered on 09/26/18at 09:18; Admin Dose 5,000 UNIT; Start 09/25/18 at 21:00 VTE Prophylaxis Risk score (from Ns)>0 risk: 3 SCD applied (from Ns): Yes Lines/Catheters IV Catheter Type: Saline Lock Holden in Place: No Assessment/Plan Assessment/Plan 62-year-old male with SBO due to right colonic mass Postop day #1 right hemicolectomy COPD Continue postop care N.p.o. Check path result Surgical follow-up LOY ADAME MD September 26, 2018 10:16
--- NOTE | 2018-09-26 13:13 | CONS ---
Assessment/Plan Assessment/Plan Hospital Course (Demo Recall) Preoperative cardiac risk stratification Small bowel obstruction status post surgery 09/25/2018 Preserved left ventricular ejection fraction Tobacco use Patient status post abdominal surgery yesterday. Had some mild shortness of breath and wheezing this morning as per family which responded to nebulizer. Denies any shortness of breath currently and is not wheezing on exam No new cardiac orders at the current time Consultation Date/Type/Reason Admit Date/Time September 25, 2018 at 10:23 Initial Consult Date 09/24/18 Type of Consult Cardiology Date/Time of Note DATE: 09/26/18 TIME: 13:11 24 HR Interval Summary Free Text/Dictation No shortness of breath, chest pain, palpitations Exam/Review of Systems Vital Signs Vitals Vital Signs Date Temp Pulse Resp B/P (MAP) Pulse Ox O2 O2 Flow FiO2 Time Delivery Rate 09/26/18 Nasal 2.0 09:40 Cannula 09/26/18 87 20 93 27 09:14 09/26/18 98.6 105/57 07:58 (73) Intake and Output 09/25/18 09/25/18 09/26/18 1515:00 23:00 07:00 IntakeIntake Total 500 ml 2350 ml 700 ml OutputOutput Total 225 ml 715 ml BalanceBalance 500 ml 2125 ml -15 ml Exam Constitutional: alert, oriented (No apparent distress) Head: normocephalic Respiratory: clear to auscultation, normal air movement Cardiovascular: regular rate and rhythm (S1-S2 heard) Gastrointestinal: soft, bowel sounds Extremities: other (No significant edema) Labs Result Diagram: 09/26/18 0510 09/26/18 0510 Results 24hrs Laboratory Tests Test 09/25/18 19:10 09/26/18 05:10 Urine Color YELLOW Urine Clarity SLIGHTLY CLOUDY A Urine pH 5.0 Urine Specific Isabella 1.019 Urine Ketones NEGATIVE Urine Nitrite NEGATIVE Urine Bilirubin NEGATIVE Urine Urobilinogen NEGATIVE Urine Leukocyte Esterase NEGATIVE Urine Microscopic RBC 1 Urine Microscopic WBC 3 Urine Hemoglobin NEGATIVE Urine Glucose NEGATIVE Urine Total Protein NEGATIVE White Blood Count 8.5 Red Blood Count 4.86 Hemoglobin 14.0 Hematocrit 42.6 Mean Corpuscular Volume 87.7 Mean Corpuscular Hemoglobin 28.8 L Mean Corpuscular Hemoglobin Concent 32.9 Red Cell Distribution Width 16.3 H Platelet Count 241 Mean Platelet Volume 10.9 H Immature Granulocytes % 0.500 H Neutrophils % 88.1 H Segmented Neutrophils % (Manual) 49 Band Neutrophils % (Manual) 31 H Lymphocytes % 6.5 L Lymphocytes % (Manual) 15 Monocytes % 4.6 Monocytes % (Manual) 4 Eosinophils % 0.1 Basophils % 0.2 Basophils % (Manual) 1 Nucleated Red Blood Cells % 0.0 Immature Granulocytes # 0.040 H Neutrophils # 7.5 Neutrophils # (Manual) 4.4 Band Neutrophils # 2.6 H Lymphocytes (Manual) 1.2 Lymphocytes # 0.6 L Monocytes # 0.4 Monocytes # (Manual) 0.3 Eosinophils # 0.0 Basophils # 0.0 Basophils # (Manual) 0.0 Nucleated Red Blood Cells # 0.0 Platelet Estimate NORMAL Giant Platelets 1 H Poikilocytosis 1+ Anisocytosis 1+ Sodium Level 137 Potassium Level 4.4 Chloride Level 106 Carbon Dioxide Level 26 Anion Gap 5 Blood Urea Nitrogen 10 Creatinine 0.80 Est Glomerular Filtrat Rate mL/min > 60 Glucose Level 129 Calcium Level 7.5 L Total Bilirubin 0.9 Direct Bilirubin 0.00 Indirect Bilirubin 0.9 Aspartate Amino Transf (AST/SGOT) 27 Alanine Aminotransferase (ALT/SGPT) 48 Alkaline Phosphatase 62 Total Protein 5.0 #L Albumin 2.5 #L Globulin 2.50 Albumin/Globulin Ratio 1.00 Medications Medications Current Medications IV Flush (NS 3 ml) 3 ml PER PROTOCOL IV ; Start 09/24/18 at 21:30 Acetaminophen (Tylenol Supp) 650 mg Q6H PRN [place] .PAIN 1-3 OR TEMP; Start 09/24/18 at 21:30 Famotidine (Pepcid Iv) 20 mg Q12 IV Last administered on 09/26/18at 09:10; Admin Dose 20 MG; Start 09/24/18 at 21:30 Albuterol/ Ipratropium (Duoneb) 3 ml Q4H RESP THERAPY HHN Last administered on 09/26/18at 09:13; Admin Dose 3 ML; Start 09/25/18 at 13:00 Metronidazole 100 ml @ 100 mls/hr Q8 IVPB Last administered on 09/26/18at 06:29; Admin Dose 100 MLS/HR; Start 09/25/18 at 22:00; Stop 09/26/18 at 14:59 Hydromorphone HCl (Dilaudid) 0.5 mg Q6H PRN IV BREAKTHROUGH PAIN; Start 09/25/18 at 19:00 Ketorolac Tromethamine (Toradol) 30 mg Q6H PRN IV PAIN; Start 09/25/18 at 19:00; Stop 09/28/18 at 18:59 Diphenhydramine HCl (Benadryl) 25 mg Q6H PRN IV ITCHING; Start 09/25/18 at 19:00 Ondansetron HCl (Zofran Inj) 4 mg Q6H PRN IV NAUSEA AND/OR VOMITING; Start 09/25/18 at 19:00 Potassium Chloride/Dextrose/ Sod Cl 1,000 ml @ 100 mls/hr Q10H IV Last administered on 09/26/18at 11:24; Admin Dose 100 MLS/HR; Start 09/25/18 at 18:40 Heparin Sodium (Porcine) (Heparin (5000 Units/1ml)) 5,000 unit Q12 SC Last administered on 09/26/18at 09:18; Admin Dose 5,000 UNIT; Start 09/25/18 at 21:00 Arron Carl DO September 26, 2018 13:12
[2018-09-26] MEDS: HYDROmorphONE 0.5 MG/0.5 ML SYG IV PRN ×2 (14:33→20:38)
[2018-09-26] MEDS ORDERED: IPRATROPIUM (NEB) 0.5 MG/2.5 ML AMP HHN ONE (23:30)
[2018-09-26] MEDS: NITROGLYCERIN 2% 1 GM OINT PKT TD SCH (23:45)
[2018-09-27] VITALS (12 sets, daily range): BP systolic 116–136; BP diastolic 61–73; PULSE 121–133; RESP 17–20
[2018-09-27] MEDS: IPRATROPIUM (NEB) 0.5 MG/2.5 ML AMP HHN SCH ×6 (02:21→21:45)
[2018-09-27] MEDS: NITROGLYCERIN 2% 1 GM OINT PKT TD SCH ×3 (05:37→17:49)
[2018-09-27] MEDS: FAMOTIDINE 20 MG INJ IV SCH ×2 (08:20→20:47)
[2018-09-27] MEDS: HEPARIN 5,000 UNIT/1 ML VIAL SC SCH ×2 (08:21→20:50)
[2018-09-27] MEDS: D5W-0.45 NACL + KCL 20 MEQ 1,000 ML IV SCH ×2 (09:40→20:47)
--- NOTE | 2018-09-27 12:39 | PN ---
Date/Time of Note Date/Time of Note DATE: 09/27/18 TIME: 12:35 Assessment/Plan Lines/Catheters IV Catheter Type (from [facility]): Peripheral IV Holden in Place (from [facility]): No Assessment/Plan Chief Complaint/Hosp Course Postoperative day 2 after right hemicolectomy. Patient still has paralytic ileus. Continues to be tachycardic with 34% of bands and dropping white count, low urinary output possibly developing sepsis.. Assessment/Plan Small bowel obstruction, status post right hemicolectomy for obstructing cecal mass. Paralytic ileus. Possible sepsis. Will start broad-spectrum antibiotics, cultures, monitor. Subjective 24 Hr Interval Summary Patient is postoperative day 2 after a right hemicolectomy for obstructing mass in the cecum. Over the last 24 hours patient is still tachycardic up to 120, low-grade temperature, does not pass flatus. His white count dropped down from 6732-7210. There were 34% of bands. Urinary output is low, 400 cc over 24 hours. Constitutional: shortness of breath Feeding: NPO Pain Control: well controlled Exam/Review of Systems Vital Signs Vitals Vital Signs Date Temp Pulse Resp B/P (MAP) Pulse Ox O2 O2 Flow FiO2 Time Delivery Rate 09/27/18 123 12:01 09/27/18 100.5 20 130/70 94 Mask 11:07 (90) 09/27/18 15.0 50 08:11 Intake and Output 09/26/18 09/26/18 09/27/18 1515:00 23:00 07:00 IntakeIntake Total 600 ml 950 ml 1000 ml OutputOutput Total 100 ml 700 ml BalanceBalance 600 ml 850 ml 300 ml Exam Gastrointestinal: other (Abdomen is still distended soft not tender. NG tube drains bilious material 400 cc over 24 hours.) Results Result Diagram: 09/27/18 0615 09/27/18 0615 TIFFANY WILCOX MD Sep 27, 2018 12:39
[2018-09-27] MEDS: PIPER-TAZO 3.375 GM IV (PMX) 100 ML IVPB SCH (17:49)
--- NOTE | 2018-09-27 18:37 | PN ---
Date/Time of Note Date/Time of Note DATE: 09/27/18 TIME: 18:34 Assessment/Plan VTE Prophylaxis Risk score (from [facility])>0 risk: 8 SCD applied (from [facility]): Yes Pharmacological prophylaxis: NA/contraindicated Pharm contraindication: surgical contra Lines/Catheters IV [facility] Type ([facility] Peripheral IV Urinary Cath still in place: No Assessment/Plan Assessment/Plan 1. 62-year-old man admitted with bowel obstruction due to right colonic mass now post-op day #2 right hemicolectomy. Recovering as expected. No flatus yet. 2. High oxygen requirement, with SaO2 high-80s. CXR shows no infiltrates, but probable right pleural effusion. No pneumothorax. H/o of COPD, but no hyperinflation on CXR. 3. Tachycardia overnight in the 120s-130s; switched to telemetry to monitor. Normal sinus rhythm, with no acute ischemia on chest x-ray 4. Bandemia (39%), but on a low WBC of 4k/ul. No fever. No other signs of post-operative infection. 5. Tobacco use * Continue telemetry * NPO with nasogastric tube to low-intermittent suction * Will send D-dimer, ESR with next labs * Note Dr. Gregory started him empirically on Zosyn q6h IV * Follow-up with Pathology anticipated on Saturday * Famotidine for GI protection * SCDs for DVT prevention * Full-code * Disposition: very supportive family Sylvie Jacobsen MD PhD [facility] [phone] Result Diagram: 09/27/18 0615 09/27/18 0615 Results 24hrs Laboratory Tests Test 09/27/18 06:15 White Blood Count 4.5 #L Red Blood Count 4.71 Hemoglobin 13.3 L Hematocrit 40.7 L Mean Corpuscular Volume 86.4 Mean Corpuscular Hemoglobin 28.2 L Mean Corpuscular Hemoglobin Concent 32.7 Red Cell Distribution Width 16.3 H Platelet Count 236 Mean Platelet Volume 10.9 H Immature Granulocytes % 0.400 Neutrophils % Segmented Neutrophils % (Manual) 43 Band Neutrophils % (Manual) 39 H Lymphocytes % Lymphocytes % (Manual) 11 L Monocytes % Monocytes % (Manual) 3 Eosinophils % Eosinophils % (Manual) 3 Basophils % Basophils % (Manual) 1 Nucleated Red Blood Cells % 0.0 Immature Granulocytes # 0.020 Neutrophils # Neutrophils # (Manual) 2.0 Band Neutrophils # 1.7 H Lymphocytes (Manual) 0.4 L Lymphocytes # Monocytes # Monocytes # (Manual) 0.1 L Eosinophils # Basophils # Basophils # (Manual) 0.0 Nucleated Red Blood Cells # Dohle Bodies 1+ Platelet Estimate NORMAL Sodium Level 134 L Potassium Level 4.5 Chloride Level 105 Carbon Dioxide Level 26 Anion Gap 3 L Blood Urea Nitrogen 11 Creatinine 0.83 Est Glomerular Filtrat Rate mL/min > 60 Glucose Level 135 Calcium Level 8.2 L Troponin I < 0.012 Subjective 24 Hr Interval Summary Free Text/Dictation , daughter, brother at bedside. Feeling well overall, apart from the annoy ance of the NG tube. No chest pain. Mostly without dyspnea when wearing the mask. Minimal abdominal pain 2d post-op. Exam/Review of Systems Exam Vitals Vital Signs Date Temp Pulse Resp B/P (MAP) Pulse Ox O2 O2 Flow FiO2 Time Delivery Rate 09/27/18 125 20 90 Venti 15.0 50 16:55 Mask 09/27/18 100.8 136/69 15:19 (91) Intake and Output 09/26/18 09/26/18 09/27/18 1515:00 23:00 07:00 IntakeIntake Total 600 ml 950 ml 1000 ml OutputOutput Total 100 ml 700 ml BalanceBalance 600 ml 850 ml 300 ml Exam GENERAL: Well-developed, well-nourished man dependent on facemask with oxygen HEENT: EOMI, normal pupils, moist oral mucosa NECK: Supple, no JVD. LUNGS: Mild expiratory wheezing, no crackles, hypoventilatory bases CVS: Regular rhythm, mildly tachycardic, no murmur, good peripheral perfusion ABDOMEN: Soft, mild diffuse tenderness, but non-distended. Hypoactive bowel sounds. EXTREMITIES: No clubbing, cyanosis or edema. No arthritis. NEURO: Alert, oriented, speaking fluently in Haitian, CN/motor/sensation intact. Toes downgoing. SKIN: No decubiti or rash Results Results 24hrs Laboratory Tests Test 09/27/18 06:15 White Blood Count 4.5 #L Red Blood Count 4.71 Hemoglobin 13.3 L Hematocrit 40.7 L Mean Corpuscular Volume 86.4 Mean Corpuscular Hemoglobin 28.2 L Mean Corpuscular Hemoglobin Concent 32.7 Red Cell Distribution Width 16.3 H Platelet Count 236 Mean Platelet Volume 10.9 H Immature Granulocytes % 0.400 Neutrophils % Segmented Neutrophils % (Manual) 43 Band Neutrophils % (Manual) 39 H Lymphocytes % Lymphocytes % (Manual) 11 L Monocytes % Monocytes % (Manual) 3 Eosinophils % Eosinophils % (Manual) 3 Basophils % Basophils % (Manual) 1 Nucleated Red Blood Cells % 0.0 Immature Granulocytes # 0.020 Neutrophils # Neutrophils # (Manual) 2.0 Band Neutrophils # 1.7 H Lymphocytes (Manual) 0.4 L Lymphocytes # Monocytes # Monocytes # (Manual) 0.1 L Eosinophils # Basophils # Basophils # (Manual) 0.0 Nucleated Red Blood Cells # Dohle Bodies 1+ Platelet Estimate NORMAL Sodium Level 134 L Potassium Level 4.5 Chloride Level 105 Carbon Dioxide Level 26 Anion Gap 3 L Blood Urea Nitrogen 11 Creatinine 0.83 Est Glomerular Filtrat Rate mL/min > 60 Glucose Level 135 Calcium Level 8.2 L Troponin I < 0.012 Medications Medication Current Medications IV Flush (NS 3 ml) 3 ml PER PROTOCOL IV ; Start 09/24/18 at 21:30 Acetaminophen (Tylenol Supp) 650 mg Q6H PRN [place] .PAIN 1-3 OR TEMP; Start 09/24/18 at 21:30 Famotidine (Pepcid Iv) 20 mg Q12 IV Last administered on 09/27/18at 08:20; Admin Dose 20 MG; Start 09/24/18 at 21:30 Hydromorphone HCl (Dilaudid) 0.5 mg Q6H PRN IV BREAKTHROUGH PAIN Last administered on 09/26/18at 20:38; Admin Dose 0.5 MG; Start 09/25/18 at 19:00 Ketorolac Tromethamine (Toradol) 30 mg Q6H PRN IV PAIN; Start 09/25/18 at 19:00; Stop 09/28/18 at 18:59 Diphenhydramine HCl (Benadryl) 25 mg Q6H PRN IV ITCHING; Start 09/25/18 at 19:00 Ondansetron HCl (Zofran Inj) 4 mg Q6H PRN IV NAUSEA AND/OR VOMITING; Start 09/25/18 at 19:00 Potassium Chloride/Dextrose/ Sod Cl 1,000 ml @ 100 mls/hr Q10H IV Last administered on 09/27/18 09:40; Admin Dose 100 MLS/HR; Start 09/25/18 at 18:40 Heparin Sodium (Porcine) (Heparin (5000 Units/1ml)) 5,000 unit Q12 SC Last administered on 09/27/18 08:21; Admin Dose 5,000 UNIT; Start 09/25/18 at 21:00 Nitroglycerin (Nitroglycerin 2% Oint) 0.5 inch Q6 TD Last administered on 09/27/18 17:49; Admin Dose 0.5 INCH; Start 09/27/18 at 00:00 Ipratropium [place] (Atrovent 0.02% (Neb)) 0.5 mg Q4H RESP THERAPY HHN Last administered on 09/27/18 16:55; Admin Dose 0.5 MG; Start 09/27/18 at 01:00 Piperacillin Sod/ Tazobactam Sod 100 ml @ 200 mls/hr Q6 IVPB Last administered on 09/27/18 17:49; Admin Dose 200 MLS/HR; Start 09/27/18 at 18:00 GUSTAVO JACOBSEN M.D. Sep 27, 2018 18:37
[2018-09-27] MEDS: ACETAMINOPHEN 650 MG SUPP PR PRN (20:42)
[2018-09-28] VITALS (12 sets, daily range): BP systolic 106–134; BP diastolic 58–65; PULSE 90–112; RESP 17–18
[2018-09-28] MEDS: NITROGLYCERIN 2% 1 GM OINT PKT TD SCH ×4 (00:58→17:34)
[2018-09-28] MEDS: PIPER-TAZO 3.375 GM IV (PMX) 100 ML IVPB SCH ×5 (00:58→22:05)
[2018-09-28] MEDS: IPRATROPIUM (NEB) 0.5 MG/2.5 ML AMP HHN SCH ×5 (01:20→15:39)
[2018-09-28] MEDS: ACETAMINOPHEN 650 MG SUPP PR PRN (05:07)
[2018-09-28] MEDS: D5W-0.45 NACL + KCL 20 MEQ 1,000 ML IV SCH ×3 (07:35→22:05)
[2018-09-28] MEDS: FAMOTIDINE 20 MG INJ IV SCH ×2 (08:30→22:05)
[2018-09-28] MEDS: HEPARIN 5,000 UNIT/1 ML VIAL SC SCH ×2 (08:32→22:12)
--- NOTE | 2018-09-28 12:13 | PN ---
Date/Time of Note Date/Time of Note DATE: 09/28/18 TIME: 12:09 Assessment/Plan Lines/Catheters IV Catheter Type (from Nrs): Peripheral IV Holden in Place (from Nrs): No Assessment/Plan Chief Complaint/Hosp Course Postoperative day 3 after right hemicolectomy. Postoperative paralytic ileus resolved. Hemodynamically improved. Problems: (1) Status post right hemicolectomy (2) Cancer of right colon Assessment/Plan Will DC NG tube. Await lab results. Keep n.p.o. for now. Continue antibiotics Subjective 24 Hr Interval Summary Patient is third postoperative day after right hemicolectomy for obstructing cecal mass. Patient is doing much better today. His heart rate is down to 100. He is afebrile. Making good urine up to fifteen 100/20 4 hours. Patient passed gas and had a bowel movement. His NG tube output dropped to 150 cc since last shift. Constitutional: improved Feeding: NPO Pain Control: well controlled Exam/Review of Systems Vital Signs Vitals Vital Signs Date Temp Pulse Resp B/P (MAP) Pulse Ox O2 O2 Flow FiO2 Time Delivery Rate 09/28/18 99.0 95 18 109/65 96 11:34 (80) 09/28/18 15.0 50 08:52 09/28/18 Venti Mask 08:50 Intake and Output 09/27/18 09/27/18 09/28/18 1515:00 23:00 07:00 IntakeIntake Total 0 ml 0 ml OutputOutput Total 1000 ml 500 ml BalanceBalance -1000 ml -500 ml Exam Gastrointestinal: soft, non-tender, other (Less distended) Results Result Diagram: 09/27/18 0615 09/27/18 0615 TIFFANY WILCOX MD Sep 28, 2018 12:13
--- NOTE | 2018-09-28 12:51 | PN ---
Date/Time of Note Date/Time of Note DATE: 09/28/18 TIME: 12:47 Assessment/Plan VTE Prophylaxis Risk score (from Ns)>0 risk: 7 SCD applied [facility]from [facility] Yes Pharmacological prophylaxis: NA/contraindicated Pharm contraindication: surgical contra Lines/Catheters IV Catheter Type (from [facility]): Peripheral IV Urinary Cath still in place: No Assessment/Plan Assessment/Plan 1. 62-year-old man admitted with bowel obstruction due to right colonic mass now post-op day #3 with right hemicolectomy. Recovering very well, with passage of flatus and stool this morning. Examined patient together with Dr. Gregory. 2. Continued high oxygen requirement, with SaO2 high-80s. CXR shows no infiltrates, but probable right pleural effusion. No pneumothorax. H/o of COPD, but no hyperinflation on CXR. 3. Tachycardia improved now, in the 90s. Normal sinus rhythm on EKG Saturday n ight, with no acute ischemia 4. Bandemia (39%) yesterday, but on a low WBC of 4k/ul. No fever. No other signs of post-operative infection. 5. Tobacco use * Continue telemetry * Pull nasogastric tube per Dr. Gregory, and keep NPO for now * Repeat CBC & BMP this morning, with D-dimer, ESR pending * Continue Zosyn q6h IV pending lab results * Dr. Gregorio Peace will consult for Pulmonary Medicine; consider thoracentesis tomorrow for effusion * Follow-up with Pathology anticipated on Saturday * Famotidine for GI protection * SCDs for DVT prevention * Full-code * Disposition: very supportive family Sylvie Jacobsen MD PhD [facility] [phone] Result Diagram: 09/27/1815 09/27/18 0615 Subjective 24 Hr Interval Summary Free Text/Dictation Daughter at bedside. Still short of breath off his oxygen for any period. Does not use oxygen at home. Passing flatus with a large bowel movement this morning. Minimal abdominal post-op discomfort. No chest pain. Has not ambulated, but feels he could. Exam/Review of Systems Exam Vitals Vital Signs Date Temp Pulse Resp B/P (MAP) Pulse Ox O2 O2 Flow FiO2 Time Delivery Rate 09/28/18 92 15.0 50 12:25 09/28/18 96 20 Venti Mask 12:22 09/28/18 99.0 109/65 11:34 (80) Intake and Output 09/27/18 09/27/18 09/28/18 1515:00 23:00 07:00 IntakeIntake Total 0 ml 0 ml OutputOutput Total 1000 ml 500 ml BalanceBalance -1000 ml -500 ml Exam GENERAL: Still dependent on facemask with oxygen at 15L/min, but overall comfortable-appearing HEENT: EOMI, no JVD. LUNGS: Clear lungs, good effort CVS: Regular rhythm, normal rate, no murmur, good peripheral perfusion ABDOMEN: Soft, no tenderness, non-distended. Normal bowel sounds today EXTREMITIES: No clubbing, cyanosis or edema. No arthritis. NEURO: Alert, oriented, speaking fluently in Italian, CN/motor/sensation intact. Toes downgoing. SKIN: No rash Medications Medication Current Medications IV Flush (NS 3 ml) 3 ml PER PROTOCOL IV ; Start 09/24/18 at 21:30 Acetaminophen (Tylenol Supp) 650 mg Q6H PRN [place] .PAIN 1-3 OR TEMP Last administ ered on 09/28/18at 05:07; Admin Dose 650 MG; Start 09/24/18 at 21:30 Famotidine (Pepcid Iv) 20 mg Q12 IV Last administered on 09/28/18at 08:30; Admin Dose 20 MG; Start 09/24/18 at 21:30 Hydromorphone HCl (Dilaudid) 0.5 mg Q6H PRN IV BREAKTHROUGH PAIN Last administered on 09/26/18at 20:38; Admin Dose 0.5 MG; Start 09/25/18 at 19:00 Ketorolac Tromethamine (Toradol) 30 mg Q6H PRN IV PAIN; Start 09/25/18 at 19:00; Stop 09/28/18 at 18:59 Diphenhydramine HCl (Benadryl) 25 mg Q6H PRN IV ITCHING; Start 09/25/18 at 19:00 Ondansetron HCl (Zofran Inj) 4 mg Q6H PRN IV NAUSEA AND/OR VOMITING; Start 09/25/18 at 19:00 Potassium Chloride/Dextrose/ Sod Cl 1,000 ml @ 100 mls/hr Q10H IV Last administered on 09/28/18 07:35; Admin Dose 100 MLS/HR; Start 09/25/18 at 18:40 Heparin Sodium (Porcine) (Heparin (5000 Units/1ml)) 5,000 unit Q12 SC Last administered on 09/28/18 08:32; Admin Dose 5,000 UNIT; Start 09/25/18 at 21:00 Nitroglycerin (Nitroglycerin 2% Oint) 0.5 inch Q6 TD Last administered on 09/28/18 11:44; Admin Dose 0.5 INCH; Start 09/27/18 at 00:00 Ipratropium [place] (Atrovent 0.02% (Neb)) 0.5 mg Q4H RESP THERAPY HHN Last administered on 09/28/18 12:21; Admin Dose 0.5 MG; Start 09/27/18 at 01:00 Piperacillin Sod/ Tazobactam Sod 100 ml @ 200 mls/hr Q6 IVPB Last administered on 09/28/18 11:44; Admin Dose 200 MLS/HR; Start 09/27/18 at 18:00 GUSTAVO JACOBSEN M.D. Sep 28, 2018 12:51
[2018-09-28] MEDS ORDERED: DIMETHICONE STICK TOP PRN (14:00)
--- NOTE | 2018-09-28 19:22 | CONS ---
Assessment/Plan Assessment/Plan Assessment/Plan (Daily) IMP: 1. Hypoxemic Respiratory Insufficiency--in a patient POD#3 s/p colonic resection. CXR from 09/27/18 shows new changes not seen 2 days earlier. These findings are most suggestive of combined RLL and RML lobar collapse vs. a hydropneumothorax. RECS: 1. Aggressive chest PT Q4 hours 2. Incentive spirometry 10 efforts Q 1 hour while awake 3. Duonebs Q [address] chest non-contrast to better assess possible hydroPTX vs. multilobar atelectasis Consultation Date/Type/Reason Admit Date/Time September 25, 2018 at 10:23 Date of Consultation: Sep 28, 2018 Type of Consult Pulm Reason for Consultation Hypoxemia Date/Time of Note DATE: 09/28/18 TIME: 19:15 Hx of Present Illness Briefly, this is a 62-year-old man admitted with bowel obstruction due to right colonic mass now post-op day #3 with right hemicolectomy. His post-operative course has been notable for hypoxemic respiratory insufficiency requiring venti- mask as well as tachycardia and low-grade fevers. Constitutional: no complaints Eyes: no complaints ENT: no complaints Respiratory: shortness of breath Cardiovascular: no complaints Gastrointestinal: flatus, nausea Genitourinary: no complaints Musculoskeletal: no complaints Skin: no complaints Neurologic: no complaints Endocrine: no complaints Lymphatic: no complaints Psychological: no complaints Immunologic: no complaints Past Medical History Medical History: no pertinent history Home Meds Discontinued Reported Medications Bismuth Subsalicylate (Stomach Relief) 262 Mg Tab.chew, 262 MG PO Q6H, TAB.CHEW 09/23/18 Omeprazole* (Omeprazole*) 40 Mg Capsule.dr, 40 MG PO BID, #30 CAP 09/23/18 Amoxicillin* (Amoxicillin*) 500 Mg Cap, 1000 MG PO BID, #20 CAP START DATE 09/20/18 09/23/18 Metronidazole* (Metronidazole*) 500 Mg Tablet, 500 MG PO BID, TAB START DATE 09/20/18 09/23/18 Discontinued Scripts Sennosides* (Senna Lax*) 8.6 Mg Tablet, 1 TAB PO DAILY, #30 TAB Prov:GODFREY SCHERER MD 09/23/18 Docusate Sodium* (Colace*) 100 Mg Capsule, 100 MG PO TID, #30 CAP Prov:GODFREY SCHERER MD 09/23/18 Ibuprofen* (Motrin*) 600 Mg Tab, 600 MG PO Q6H PRN for PAIN AND OR ELEVATED TEMP, #30 TAB Prov:GODFREY SCHERER MD 09/23/18 Medications Current Medications IV Flush (NS 3 ml) 3 ml PER PROTOCOL IV ; Start 09/24/18 at 21:30 Acetaminophen (Tylenol Supp) 650 mg Q6H PRN [place] .PAIN 1-3 OR TEMP Last administered on 09/28/18 05:07; Admin Dose 650 MG; Start 09/24/18 at 21:30 Famotidine (Pepcid Iv) 20 mg Q12 IV Last administered on 09/28/18 08:30; Admin Dose 20 MG; Start 09/24/18 at 21:30 Hydromorphone HCl (Dilaudid) 0.5 mg Q6H PRN IV BREAKTHROUGH PAIN Last administered on 09/26/18at 20:38; Admin Dose 0.5 MG; Start 09/25/18 at 19:00 Diphenhydramine HCl (Benadryl) 25 mg Q6H PRN IV ITCHING; Start 09/25/18 at 19:00 Ondansetron HCl (Zofran Inj) 4 mg Q6H PRN IV NAUSEA AND/OR VOMITING; Start 09/25/18 at 19:00 Heparin Sodium (Porcine) (Heparin (5000 Units/1ml)) 5,000 unit Q12 SC Last administered on 09/28/18 08:32; Admin Dose 5,000 UNIT; Start 09/25/18 at 21:00 Nitroglycerin (Nitroglycerin 2% Oint) 0.5 inch Q6 TD Last administered on 09/28/18 17:34; Admin Dose 0.5 INCH; Start 09/27/18 at 00:00 Ipratropium [place] (Atrovent 0.02% (Neb)) 0.5 mg Q4H RESP THERAPY HHN Last administered on 09/28/18 15:39; Admin Dose 0.5 MG; Start 09/27/18 at 01:00 Piperacillin Sod/ Tazobactam Sod 100 ml @ 200 mls/hr Q6 IVPB Last administered on 09/28/18 17:30; Admin Dose 200 MLS/HR; Start 09/27/18 at 18:00 Dimethicone (Blistex Lip [place]) 1 applic Q2H PRN TOP dry lips; Start 09/28/18 at 14:00 Allergies: Coded Allergies: No Known Allergy (Unverified , 09/24/18) Past Surgical History Past Surgical Hx: no surgical history Social History Smoking Status: Current some day smoker Exam/Review of Systems Exam Vitals Vital Signs Date Temp Pulse Resp B/P (MAP) Pulse Ox O2 O2 Flow FiO2 Time Delivery Rate 09/28/18 99 16:01 09/28/18 20 94 Venti Mask 15.0 50 15:41 09/28/18 98.7 106/58 15:29 (74) Intake and Output 09/27/18 09/27/18 09/28/18 1515:00 23:00 07:00 IntakeIntake Total 0 ml 0 ml OutputOutput Total 1000 ml 500 ml BalanceBalance -1000 ml -500 ml Constitutional: alert, oriented, well developed Psych: no complaints Head: normocephalic, atraumatic Eyes: nl conjunctiva, EOMI, nl lids, nl sclera ENMT: nl external ears & nose, nl lips & teeth, nl nasal mucosa & septum, mucosa pink and moist Neck: supple, non-tender Respiratory: diminished breath sounds Cardiovascular: nl pulses, irregular rhythm Gastrointestinal: soft, nl liver, spleen, non-tender, distended, surgical scars Musculoskeletal: nl extremities to inspection Extremities: normal pulses Neurological: CERTIFIED RETINAL ANGIOGRAPHER II-XII intact, nl mental status, DTR's symmetric Results Result Diagram: 09/28/18 1258 09/28/18 1258 Results 24hrs Laboratory Tests Test 09/28/18 12:58 White Blood Count 6.7 # Red Blood Count 4.32 L Hemoglobin 12.2 L Hematocrit 37.2 L Mean Corpuscular Volume 86.1 Mean Corpuscular Hemoglobin 28.2 L Mean Corpuscular Hemoglobin Concent 32.8 Red Cell Distribution Width 15.9 H Platelet Count 207 Mean Platelet Volume 10.7 H Immature Granulocytes % 0.400 Neutrophils % Segmented Neutrophils % (Manual) 80 H Band Neutrophils % (Manual) 3 Lymphocytes % Lymphocytes % (Manual) 9 L Reactive Lymphocytes % (Manual) 2 H Monocytes % Monocytes % (Manual) 5 Eosinophils % Eosinophils % (Manual) 1 Basophils % Nucleated Red Blood Cells % 0.0 Immature Granulocytes # 0.030 Neutrophils # Neutrophils # (Manual) 5.4 Band Neutrophils # 0.2 Lymphocytes (Manual) 0.6 L Lymphocytes # Reactive Lymphocytes # 0.1 H Monocytes # Monocytes # (Manual) 0.3 Eosinophils # Basophils # Nucleated Red Blood Cells # Platelet Estimate NORMAL Erythrocyte Sedimentation Rate 66 H D-Dimer > 12210.00 H Sodium Level 136 Potassium Level 4.0 Chloride Level 104 Carbon Dioxide Level 26 Anion Gap 6 Blood Urea Nitrogen 11 Creatinine 0.68 Est Glomerular Filtrat Rate mL/min > 60 Glucose Level 113 Calcium Level 8.3 L Medications Medication Current Medications IV Flush (NS 3 ml) 3 ml PER PROTOCOL IV ; Start 09/24/18 at 21:30 Acetaminophen (Tylenol Supp) 650 mg Q6H PRN [place] .PAIN 1-3 OR TEMP Last administered on 09/28/18 05:07; Admin Dose 650 MG; Start 09/24/18 at 21:30 Famotidine (Pepcid Iv) 20 mg Q12 IV Last administered on 09/28/18 08:30; Admin Dose 20 MG; Start 09/24/18 at 21:30 Hydromorphone HCl (Dilaudid) 0.5 mg Q6H PRN IV BREAKTHROUGH PAIN Last administered on 09/26/18 20:38; Admin Dose 0.5 MG; Start 09/25/18 at 19:00 Diphenhydramine HCl (Benadryl) 25 mg Q6H PRN IV ITCHING; Start 09/25/18 at 19:00 Ondansetron HCl (Zofran Inj) 4 mg Q6H PRN IV NAUSEA AND/OR VOMITING; Start 09/25/18 at 19:00 Heparin Sodium (Porcine) (Heparin (5000 Units/1ml)) 5,000 unit Q12 SC Last administered on 09/28/18 08:32; Admin Dose 5,000 UNIT; Start 09/25/18 at 21:00 Nitroglycerin (Nitroglycerin 2% Oint) 0.5 inch Q6 TD Last administered on 09/28/18 17:34; Admin Dose 0.5 INCH; Start 09/27/18 at 00:00 Ipratropium [place] (Atrovent 0.02% (Neb)) 0.5 mg Q4H RESP THERAPY HHN Last administered on 6/2/19at 15:39; Admin Dose 0.5 MG; Start 09/27/18 at 01:00 Piperacillin Sod/ Tazobactam Sod 100 ml @ 200 mls/hr Q6 IVPB Last administered on 09/28/18at 17:30; Admin Dose 200 MLS/HR; Start 09/27/18 at 18:00 Dimethicone (Blistex Lip [place]) 1 applic Q2H PRN TOP dry lips; Start 09/28/18 at 14:00 JARRETT MICHELLE MD Sep 28, 2018 19:22
[2018-09-28] MEDS: ALBUTEROL/IPRATROPIUM (NEB) 3 ML AMP HHN SCH (20:25)
[2018-09-29] VITALS (10 sets, daily range): BP systolic 102–133; BP diastolic 55–63; PULSE 79–93; RESP 18–19
[2018-09-29] MEDS: ACETAMINOPHEN 650 MG SUPP PR PRN (00:28)
[2018-09-29] MEDS: NITROGLYCERIN 2% 1 GM OINT PKT TD SCH ×4 (00:29→18:01)
[2018-09-29] MEDS: D5W-0.45 NACL + KCL 20 MEQ 1,000 ML IV SCH ×2 (05:33→16:30)
[2018-09-29] MEDS: PIPER-TAZO 3.375 GM IV (PMX) 100 ML IVPB SCH ×3 (05:34→17:45)
[2018-09-29] MEDS ORDERED: ALBUTEROL/IPRATROPIUM (NEB) 3 ML AMP HHN SCH (08:15)
[2018-09-29] MEDS ORDERED: ACETYLCYSTEINE 20% 4 ML VIAL NEB SCH (08:15)
[2018-09-29] MEDS: ALBUTEROL/IPRATROPIUM (NEB) 3 ML AMP HHN SCH ×4 (08:35→21:06)
[2018-09-29] MEDS: ACETYLCYSTEINE 20% 4 ML VIAL NEB SCH ×4 (09:00→21:06)
[2018-09-29] MEDS: FAMOTIDINE 20 MG INJ IV SCH ×2 (10:25→20:41)
[2018-09-29] MEDS: HEPARIN 5,000 UNIT/1 ML VIAL SC SCH ×2 (11:29→20:49)
--- NOTE | 2018-09-29 12:11 | CONS ---
Consult Date/Type/Reason Admit Date/Time September 25, 2018 at 10:23 Initial Consult Date 09/28/18 Type of Consult Pulmonary Date/Time of Note DATE: 09/29/18 TIME: 12:09 Subjective Patient stable this morning with no respiratory distress continues Ventimask oxygen Objective Vital Signs Date Temp Pulse Resp B/P (MAP) Pulse Ox O2 O2 Flow FiO2 Time Delivery Rate 09/29/18 98.5 79 19 133/63 92 11:27 (86) 09/29/18 Venti Mask 15.0 50 08:46 Intake and Output 09/28/18 09/28/18 09/29/18 1515:00 23:00 07:00 IntakeIntake Total 0 ml 0 ml OutputOutput Total 500 ml 450 ml 550 ml BalanceBalance -500 ml -450 ml -550 ml Exam GENERAL: Elderly appearing gentleman comfortable at rest no acute distress VITAL SIGNS: per chart NECK: Supple. No JVD or lymphadenopathy. CARDIAC EXAM: S1, S2. No added sounds or murmurs. CHEST: Diminished air entry bilaterally ABDOMEN: Soft, nontender. No guarding or rebound. EXTREMITIES: No cyanosis, clubbing or edema. NEUROLOGIC: Generalized weakness. No focal deficits. Vent Setting Fraction of Inspired Oxygen pe: 50 Results/Medications Result Diagram: 09/29/18 0650 09/29/18 0650 Results 24 hrs Laboratory Tests Test 09/28/18 12:58 09/29/18 05:00 09/29/18 06:50 White Blood Count 6.7 # 7.2 Red Blood Count 4.32 L 3.73 L Hemoglobin 12.2 L 10.6 L Hematocrit 37.2 L 31.6 L Mean Corpuscular Volume 86.1 84.7 Mean Corpuscular Hemoglobin 28.2 L 28.4 L Mean Corpuscular 32.8 33.5 Hemoglobin Concent Red Cell Distribution Width 15.9 H 16.1 H Platelet Count 207 206 Mean Platelet Volume 10.7 H 11.1 H Immature Granulocytes % 0.400 0.400 Neutrophils % Segmented Neutrophils 80 H 73 % (Manual) Band Neutrophils % (Manual) 3 6 H Lymphocytes % Lymphocytes % (Manual) 9 L 12 L Reactive Lymphocytes 2 H % (Manual) Monocytes % Monocytes % (Manual) 5 5 Eosinophils % Eosinophils % (Manual) 1 4 Basophils % Nucleated Red Blood Cells % 0.0 0.0 Immature Granulocytes # 0.030 0.030 Neutrophils # Neutrophils # (Manual) 5.4 5.3 Band Neutrophils # 0.2 0.4 Lymphocytes (Manual) 0.6 L 0.8 Lymphocytes # Reactive Lymphocytes # 0.1 H Monocytes # Monocytes # (Manual) 0.3 0.3 Eosinophils # Basophils # Nucleated Red Blood Cells # Platelet Estimate NORMAL NORMAL Erythrocyte Sedimentation Rate 66 H D-Dimer > 47702.00 H Sodium Level 136 136 Potassium Level 4.0 3.7 Chloride Level 104 105 Carbon Dioxide Level 26 25 Anion Gap 6 6 Blood Urea Nitrogen 11 10 Creatinine 0.68 0.66 Est Glomerular Filtrat > 60 > 60 Rate mL/min Glucose Level 113 108 Calcium Level 8.3 L 8.0 L Blood Gas Specimen Source Blood arterial Arterial Blood Date Drawn 09/29/2018 4:30:44 AM Arterial Blood pH 7.443 (Temp corrected) Arterial Blood pCO2 38.1 (Temp correct) Arterial Blood pO2 66.6 L (Temp corrected) Arterial Blood HCO3 25.5 Arterial Blood Base Excess 1.5 Arterial Blood 93.8 L Oxygen Saturation Morgan Test ACCEPTAB Arterial Blood Gas Right Radial Puncture Site Arterial 0.4 Blood Carboxyhemoglobin Arterial Blood Methemoglobin 0.3 Blood Gas A-a O2 Differential 247.0 H Oxyhemoglobin Percent 93.1 Blood Gas Temperature 37.0 Blood Gas Modality MASK - VENTI FiO2 50.0 Blood Gas Notified Whom MA Blood Gas Notified Time 09/29/2018 4:50:21 AM Giant Platelets 3 H Poikilocytosis 1+ Medications Current Medications IV Flush (NS 3 ml) 3 ml PER PROTOCOL IV ; Start 09/24/18 at 21:30 Acetaminophen (Tylenol Supp) 650 mg Q6H PRN [place] .PAIN 1-3 OR TEMP Last administered on 09/29/18at 00:28; Admin Dose 650 MG; Start 09/24/18 at 21:30 Famotidine (Pepcid Iv) 20 mg Q12 IV Last administered on 09/29/18at 10:25; Admin Dose 20 MG; Start 09/24/18 at 21:30 Hydromorphone HCl (Dilaudid) 0.5 mg Q6H PRN IV BREAKTHROUGH PAIN Last administered on 09/26/18at 20:38; Admin Dose 0.5 MG; Start 09/25/18 at 19:00 Diphenhydramine HCl (Benadryl) 25 mg Q6H PRN IV ITCHING; Start 09/25/18 at 19:00 Ondansetron HCl (Zofran Inj) 4 mg Q6H PRN IV NAUSEA AND/OR VOMITING; Start 09/25/18 at 19:00 Heparin Sodium (Porcine) (Heparin (5000 Units/1ml)) 5,000 unit Q12 SC Last administered on 09/29/18at 11:29; Admin Dose 5,000 UNIT; Start 09/25/18 at 21:00 Nitroglycerin (Nitroglycerin 2% Oint) 0.5 inch Q6 TD Last administered on 09/29/18at 05:34; Admin Dose 0.5 INCH; Start 09/27/18 at 00:00 Piperacillin Sod/ Tazobactam Sod 100 ml @ 200 mls/hr Q6 IVPB Last administered on 09/29/18at 05:34; Admin Dose 200 MLS/HR; Start 09/27/18 at 18:00 Dimethicone (Blistex Lip [place]) 1 applic Q2H PRN TOP dry lips; Start 09/28/18 at 14:00 Albuterol/ Ipratropium (Duoneb) 3 ml Q4HWA RESP THERAPY HHN Last administered on 09/29/18at 08:35; Admin Dose 3 ML; Start 09/28/18 at 21:00 Potassium Chloride/Dextrose/ Sod Cl 1,000 ml @ 100 mls/hr Q10H IV Last administered on 09/29/18at 05:33; Admin Dose 100 MLS/HR; Start 09/28/18 at 20:30 Acetylcysteine (Mucomyst) 3 ml Q4H RESP THERAPY NEB ; Start 09/29/18 at 09:00 Assessment/Plan Hospital Course (Demo Recall) IMP: 1. Hypoxemic Respiratory Insufficiency--in a patient POD#4 s/p colonic resection. CXR from 09/27/18 shows new changes not seen 2 days earlier. These findings are most suggestive of combined RLL and RML lobar collapse vs. a hydropneumothorax. RECS: 1. Aggressive chest PT Q4 hours 2. Incentive spirometry 10 efforts Q 1 hour while awake 3. Duonebs Q 4 hours with Mucomyst. 4. CT chest Findings noted consistent with mucous plugging and lobar collapse. Discussed with staff encourage out of bed and ambulation. HEATHER SOUZA MD, [facility] Sep 29, 2018 12:11
--- NOTE | 2018-09-29 14:26 | PN ---
Date/Time of Note Date/Time of Note DATE: 09/29/18 TIME: 14:24 Subjective Doing well. Ambulated in the hallway. Has had multiple BMs. Feels hungry. Less shortness of breath Objective Vitals Vital Signs Date Temp Pulse Resp B/P (MAP) Pulse Ox O2 O2 Flow FiO2 Time Delivery Rate 09/29/18 87 18 97 Venti Mask 15.0 50 13:09 09/29/18 98.5 133/63 11:27 (86) Intake and Output 09/28/18 09/28/18 09/29/18 1515:00 23:00 07:00 IntakeIntake Total 0 ml 0 ml OutputOutput Total 500 ml 450 ml 550 ml BalanceBalance -500 ml -450 ml -550 ml Bilateral rhonchi Regular rate and rhythm Soft mildly tender normoactive bowel sounds No edema Nonfocal Results Result Diagram: 09/29/18 0650 09/29/18 0650 Medications Medications Current Medications IV Flush (NS 3 ml) 3 ml PER PROTOCOL IV ; Start 09/24/18 at 21:30 Acetaminophen (Tylenol Supp) 650 mg Q6H PRN [place] .PAIN 1-3 OR TEMP Last administered on 09/29/18at 00:28; Admin Dose 650 MG; Start 09/24/18 at 21:30 Famotidine (Pepcid Iv) 20 mg Q12 IV Last administered on 09/29/18at 10:25; Admin Dose 20 MG; Start 09/24/18 at 21:30 Hydromorphone HCl (Dilaudid) 0.5 mg Q6H PRN IV BREAKTHROUGH PAIN Last administered on 09/26/18at 20:38; Admin Dose 0.5 MG; Start 09/25/18 at 19:00 Diphenhydramine HCl (Benadryl) 25 mg Q6H PRN IV ITCHING; Start 09/25/18 at 19:00 Ondansetron HCl (Zofran Inj) 4 mg Q6H PRN IV NAUSEA AND/OR VOMITING; Start 09/25/18 at 19:00 Heparin Sodium (Porcine) (Heparin (5000 Units/1ml)) 5,000 unit Q12 SC Last administered on 09/29/18at 11:29; Admin Dose 5,000 UNIT; Start 09/25/18 at 21:00 Nitroglycerin (Nitroglycerin 2% Oint) 0.5 inch Q6 TD Last administered on 09/29/18 12:16; Admin Dose 0.5 INCH; Start 09/27/18 at 00:00 Piperacillin Sod/ Tazobactam Sod 100 ml @ 200 mls/hr Q6 IVPB Last administered on 09/29/18 12:16; Admin Dose 200 MLS/HR; Start 09/27/18 at 18:00 Dimethicone (Blistex Lip [place]) 1 applic Q2H PRN TOP dry lips; Start 09/28/18 at 14:00 Albuterol/ Ipratropium (Duoneb) 3 ml Q4HWA RESP THERAPY HHN Last administered on 09/29/18 12:59; Admin Dose 3 ML; Start 09/28/18 at 21:00 Potassium Chloride/Dextrose/ Sod Cl 1,000 ml @ 100 mls/hr Q10H IV Last administered on 09/29/18 05:33; Admin Dose 100 MLS/HR; Start 09/28/18 at 20:30 Acetylcysteine (Mucomyst) 3 ml Q4H RESP THERAPY NEB Last administered on 09/29/18 12:59; Admin Dose 3 ML; Start 09/29/18 at 09:00 VTE Prophylaxis Risk score (from Nsg)>0 risk: 8 SCD applied (from Nsg): Yes Lines/Catheters IV Catheter Type: Saline Lock Holden in Place: No Assessment/Plan Assessment/Plan 62-year-old male with SBO due to right colonic mass Postop day #4 right hemicolectomy Acute respiratory distress due to mucous plug and atelectasis COPD Start clear liquid diet Continue chest PT Chest x-ray in a.m. Surgical and pulmonary follow-up Case was discussed with belt brander LOY ADAME MD Sep 29, 2018 14:26
--- NOTE | 2018-09-29 14:50 | CONS ---
Assessment/Plan Assessment/Plan Hospital Course (Demo Recall) Preoperative cardiac risk stratification Lobar collapse with mucous plugging Small bowel obstruction status post surgery 09/25/2018 Preserved left ventricular ejection fraction Tobacco use Patient status post abdominal surgery Undergoing coronary treatment for primary pulmonary etiologies No new cardiac orders at the current time Consultation Date/Type/Reason Admit Date/Time September 25, 2018 at 10:23 Initial Consult Date 09/24/18 Type of Consult Cardiology Date/Time of Note DATE: 09/29/18 TIME: 14:48 24 HR Interval Summary Free Text/Dictation Shortness of breath is improving. Denies palpitations, chest pain Exam/Review of Systems Vital Signs Vitals Vital Signs Date Temp Pulse Resp B/P (MAP) Pulse Ox O2 O2 Flow FiO2 Time Delivery Rate 09/29/18 87 18 97 Venti Mask 15.0 50 13:09 09/29/18 98.5 133/63 11:27 (86) Intake and Output 09/28/18 09/28/18 09/29/18 1515:00 23:00 07:00 IntakeIntake Total 0 ml 0 ml OutputOutput Total 500 ml 450 ml 550 ml BalanceBalance -500 ml -450 ml -550 ml Exam Constitutional: alert, oriented (No apparent distress) Head: normocephalic Respiratory: other (Coarse breath sounds, scattered crackles, wheezing) Cardiovascular: regular rate and rhythm (S1-S2 heard) Gastrointestinal: soft, non-tender, bowel sounds Extremities: other (No significant edema) Labs Result Diagram: 09/29/18 0650 09/29/18 0650 Results 24hrs Laboratory Tests Test 09/29/18 05:00 09/29/18 06:50 Blood Gas Specimen Source Blood arterial Arterial Blood Date Drawn 09/29/2018 4:30:44 AM Arterial Blood pH (Temp corrected) 7.443 Arterial Blood pCO2 (Temp correct) 38.1 Arterial Blood pO2 (Temp corrected) 66.6 L Arterial Blood HCO3 25.5 Arterial Blood Base Excess 1.5 Arterial Blood Oxygen Saturation 93.8 L Morgan Test ACCEPTAB Arterial Blood Gas Puncture Site Right Radial Arterial Blood Carboxyhemoglobin 0.4 Arterial Blood Methemoglobin 0.3 Blood Gas A-a O2 Differential 247.0 H Oxyhemoglobin Percent 93.1 Blood Gas Temperature 37.0 Blood Gas Modality MASK - VENTI FiO2 50.0 Blood Gas Notified Whom MA Blood Gas Notified Time 09/29/2018 4:50:21 AM White Blood Count 7.2 Red Blood Count 3.73 L Hemoglobin 10.6 L Hematocrit 31.6 L Mean Corpuscular Volume 84.7 Mean Corpuscular Hemoglobin 28.4 L Mean Corpuscular Hemoglobin Concent 33.5 Red Cell Distribution Width 16.1 H Platelet Count 206 Mean Platelet Volume 11.1 H Immature Granulocytes % 0.400 Neutrophils % Segmented Neutrophils % (Manual) 73 Band Neutrophils % (Manual) 6 H Lymphocytes % Lymphocytes % (Manual) 12 L Monocytes % Monocytes % (Manual) 5 Eosinophils % Eosinophils % (Manual) 4 Basophils % Nucleated Red Blood Cells % 0.0 Immature Granulocytes # 0.030 Neutrophils # Neutrophils # (Manual) 5.3 Band Neutrophils # 0.4 Lymphocytes (Manual) 0.8 Lymphocytes # Monocytes # Monocytes # (Manual) 0.3 Eosinophils # Basophils # Nucleated Red Blood Cells # Platelet Estimate NORMAL Giant Platelets 3 H Poikilocytosis 1+ Sodium Level 136 Potassium Level 3.7 Chloride Level 105 Carbon Dioxide Level 25 Anion Gap 6 Blood Urea Nitrogen 10 Creatinine 0.66 Est Glomerular Filtrat Rate mL/min > 60 Glucose Level 108 Calcium Level 8.0 L Medications Medications Current Medications IV Flush (NS 3 ml) 3 ml PER PROTOCOL IV ; Start 09/24/18 at 21:30 Acetaminophen (Tylenol Supp) 650 mg Q6H PRN [place] .PAIN 1-3 OR TEMP Last administered on 09/29/18at 00:28; Admin Dose 650 MG; Start 09/24/18 at 21:30 Famotidine (Pepcid Iv) 20 mg Q12 IV Last administered on 09/29/18at 10:25; Admin Dose 20 MG; Start 09/24/18 at 21:30 Hydromorphone HCl (Dilaudid) 0.5 mg Q6H PRN IV BREAKTHROUGH PAIN Last administered on 09/26/18at 20:38; Admin Dose 0.5 MG; Start 09/25/18 at 19:00 Diphenhydramine HCl (Benadryl) 25 mg Q6H PRN IV ITCHING; Start 09/25/18 at 19:00 Ondansetron HCl (Zofran Inj) 4 mg Q6H PRN IV NAUSEA AND/OR VOMITING; Start at 19:00 Heparin Sodium (Porcine) (Heparin (5000 Units/1ml)) 5,000 unit Q12 SC Last administered on 09/29/18 11:29; Admin Dose 5,000 UNIT; Start 09/25/18 at 21:00 Nitroglycerin (Nitroglycerin 2% Oint) 0.5 inch Q6 TD Last administered on 09/29/18 12:16; Admin Dose 0.5 INCH; Start 09/27/18 at 00:00 Piperacillin Sod/ Tazobactam Sod 100 ml @ 200 mls/hr Q6 IVPB Last administered on 09/29/18 12:16; Admin Dose 200 MLS/HR; Start 09/27/18 at 18:00 Dimethicone (Blistex Lip [place]) 1 applic Q2H PRN TOP dry lips; Start 09/28/18 at 14:00 Albuterol/ Ipratropium (Duoneb) 3 ml Q4HWA RESP THERAPY HHN Last administered on 09/29/18at 12:59; Admin Dose 3 ML; Start 09/28/18 at 21:00 Potassium Chloride/Dextrose/ Sod Cl 1,000 ml @ 100 mls/hr Q10H IV Last administered on 09/29/18at 05:33; Admin Dose 100 MLS/HR; Start 09/28/18 at 20:30 Acetylcysteine (Mucomyst) 3 ml Q4H RESP THERAPY NEB Last administered on 09/29/18 12:59; Admin Dose 3 ML; Start 09/29/18 at 09:00 Arron Carl DO Sep 29, 2018 14:50
[2018-09-30] VITALS (8 sets, daily range): BP systolic 107–137; BP diastolic 56–66; PULSE 79–114; RESP 18–19
[2018-09-30] MEDS: PIPER-TAZO 3.375 GM IV (PMX) 100 ML IVPB SCH ×3 (00:06→12:44)
[2018-09-30] MEDS: NITROGLYCERIN 2% 1 GM OINT PKT TD SCH ×3 (00:07→12:44)
[2018-09-30] MEDS: ACETYLCYSTEINE 20% 4 ML VIAL NEB SCH ×5 (00:39→16:03)
[2018-09-30] MEDS: D5W-0.45 NACL + KCL 20 MEQ 1,000 ML IV SCH ×2 (04:39→12:30)
[2018-09-30] MEDS: FAMOTIDINE 20 MG INJ IV SCH (08:47)
[2018-09-30] MEDS ORDERED: LEVO500T48 PO (08:56)
[2018-09-30] MEDS ORDERED: FLUT1AER INHALATION (08:56)
--- NOTE | 2018-09-30 08:57 | PDOCDIS ---
Discharge Instructions CONDITION [id number] Patient Condition: [id number] Good HOME CARE INSTRUCTIONS: [id number] Diet Instructions: [id number] Regular ACTIVITY: [id number] Activity Restrictions: [id number] Slowly Increase Activity FOLLOW UP/APPOINTMENTS Follow-up Plan pcp [address] Gregory [address] Boo 1 week LOY ADAME MD Sep 30, 2018 08:57
[2018-09-30] MEDS: HEPARIN 5,000 UNIT/1 ML VIAL SC SCH (09:00)
[2018-09-30] MEDS: ALBUTEROL/IPRATROPIUM (NEB) 3 ML AMP HHN SCH ×3 (09:16→16:03)
--- NOTE | 2018-09-30 10:58 | CONS ---
Assessment/Plan Assessment/Plan Hospital Course (Demo Recall) Preoperative cardiac risk stratification Lobar collapse with mucous plugging Small bowel obstruction status post surgery 09/25/2018 Preserved left ventricular ejection fraction Tobacco use Patient status post abdominal surgery Undergoing pulmonary treatment No new cardiac orders at the current time Consultation Date/Type/Reason Admit Date/Time September 25, 2018 at 10:23 Initial Consult Date 09/24/18 Type of Consult Cardiology Date/Time of Note DATE: 09/30/18 TIME: 10:57 24 HR Interval Summary Free Text/Dictation Denies any shortness of breath currently. Denies chest pain Exam/Review of Systems Vital Signs Vitals Vital Signs Date Temp Pulse Resp B/P (MAP) Pulse Ox O2 O2 Flow FiO2 Time Delivery Rate 09/30/18 3.0 09:41 09/30/18 91 22 95 Nasal 09:18 Cannula 09/30/18 99.6 113/57 07:23 (75) 09/29/18 50 13:09 Intake and Output 09/29/18 09/29/18 09/30/18 1515:00 23:00 07:00 IntakeIntake Total 1800 ml 450 ml OutputOutput Total 800 ml 700 ml BalanceBalance 1000 ml -250 ml Exam Constitutional: alert, oriented (No apparent distress, eating breakfast) Head: normocephalic Respiratory: other (Coarse breath sounds bilaterally, no wheezing) Cardiovascular: regular rate and rhythm (S1-S2 heard) Gastrointestinal: soft, non-tender, bowel sounds Extremities: other (No significant edema) Labs Result Diagram: 09/30/18 0641 09/30/18 0641 Results 24hrs Laboratory Tests Test 09/30/18 06:41 09/30/18 07:00 White Blood Count 6.9 Red Blood Count 3.85 L Hemoglobin 10.8 L Hematocrit 32.6 L Mean Corpuscular Volume 84.7 Mean Corpuscular Hemoglobin 28.1 L Mean Corpuscular Hemoglobin Concent 33.1 Red Cell Distribution Width 16.0 H Platelet Count 226 Mean Platelet Volume 10.6 H Immature Granulocytes % 0.400 Neutrophils % 75.4 Lymphocytes % 13.7 L Monocytes % 9.2 Eosinophils % 1.0 Basophils % 0.3 Nucleated Red Blood Cells % 0.0 Immature Granulocytes # 0.030 Neutrophils # 5.2 Lymphocytes # 0.9 Monocytes # 0.6 Eosinophils # 0.1 Basophils # 0.0 Nucleated Red Blood Cells # 0.0 Sodium Level 137 Potassium Level 3.5 Chloride Level 105 Carbon Dioxide Level 26 Anion Gap 6 Blood Urea Nitrogen 7 Creatinine 0.70 Est Glomerular Filtrat Rate mL/min > 60 Glucose Level 122 Calcium Level 8.3 L Phosphorus Level 3.2 Magnesium Level 2.2 Blood Gas Specimen Source Blood arterial Arterial Blood Date Drawn 09/30/2018 8:29:41 AM Arterial Blood pH (Temp corrected) 7.458 H Arterial Blood pCO2 (Temp correct) 36.3 Arterial Blood pO2 (Temp corrected) 60.6 L Arterial Blood HCO3 25.1 Arterial Blood Base Excess 1.5 Arterial Blood Oxygen Saturation 91.7 L Morgan Test ACCEPTAB Arterial Blood Gas Puncture Site Right Radial Arterial Blood Carboxyhemoglobin 0 Arterial Blood Methemoglobin 0.2 Blood Gas A-a O2 Differential 110.7 H Oxyhemoglobin Percent 91.5 L Blood Gas Temperature 37.0 Blood Gas Modality NASAL CANNULA FiO2 30.0 Blood Gas Notified Whom TM Blood Gas Notified Time 09/30/2018 8:38:20 AM Medications Medications Current Medications IV Flush (NS 3 ml) 3 ml PER PROTOCOL IV ; Start 09/24/18 at 21:30 Acetaminophen (Tylenol Supp) 650 mg Q6H PRN [place] .PAIN 1-3 OR TEMP Last administered on 09/29/18at 00:28; Admin Dose 650 MG; Start 09/24/18 at 21:30 Famotidine (Pepcid Iv) 20 mg Q12 IV Last administered on 09/30/18 08:47; Admin Dose 20 MG; Start 09/24/18 at 21:30 Hydromorphone HCl (Dilaudid) 0.5 mg Q6H PRN IV BREAKTHROUGH PAIN Last administered on 09/26/18at 20:38; Admin Dose 0.5 MG; Start 09/25/18 at 19:00 Diphenhydramine HCl (Benadryl) 25 mg Q6H PRN IV ITCHING; Start 09/25/18 at 19:00 Ondansetron HCl (Zofran Inj) 4 mg Q6H PRN IV NAUSEA AND/OR VOMITING; Start 09/25/18 at 19:00 Heparin Sodium (Porcine) (Heparin (5000 Units/1ml)) 5,000 unit Q12 SC Last administered on 6/4/19at 09:00; Admin Dose 5,000 UNIT; Start 09/25/18 at 21:00 Nitroglycerin (Nitroglycerin 2% Oint) 0.5 inch Q6 TD Last administered on 09/30/18at 05:58; Admin Dose 0.5 INCH; Start 09/27/18 at 00:00 Piperacillin Sod/ Tazobactam Sod 100 ml @ 200 mls/hr Q6 IVPB Last administered on 09/30/18at 05:58; Admin Dose 200 MLS/HR; Start 09/27/18 at 18:00 Dimethicone (Blistex Lip [place]) 1 applic Q2H PRN TOP dry lips; Start 09/28/18 at 14:00 Albuterol/ Ipratropium (Duoneb) 3 ml Q4HWA RESP THERAPY HHN Last administered on 09/30/18at 09:16; Admin Dose 3 ML; Start 09/28/18 at 21:00 Potassium Chloride/Dextrose/ Sod Cl 1,000 ml @ 100 mls/hr Q10H IV Last administered on 09/30/18at 04:39; Admin Dose 100 MLS/HR; Start 09/28/18 at 20:30 Acetylcysteine (Mucomyst) 3 ml Q4H RESP THERAPY NEB Last administered on 09/30/18at 09:17; Admin Dose 3 ML; Start 09/29/18 at 09:00 Arron Carl DO Sep 30, 2018 10:58
--- NOTE | 2018-09-30 12:45 | CONS ---
Consult Date/Type/Reason Admit Date/Time September 25, 2018 at 10:23 Initial Consult Date 09/28/18 Type of Consult Pulmonary Date/Time of Note DATE: 09/30/18 TIME: 12:44 Subjective Patient appears comfortable on nasal cannula this morning no respiratory distress. Chest x-ray is unchanged with right lower lobe atelectasis and collapse. Objective Vital Signs Date Temp Pulse Resp B/P (MAP) Pulse Ox O2 O2 Flow FiO2 Time Delivery Rate 09/30/18 99.0 94 18 137/66 90 11:24 (89) 09/30/18 3.0 09:41 09/30/18 Nasal 09:18 Cannula 09/29/18 50 13:09 Intake and Output 09/29/18 09/29/18 09/30/18 1515:00 23:00 07:00 IntakeIntake Total 1800 ml 450 ml OutputOutput Total 800 ml 700 ml BalanceBalance 1000 ml -250 ml Exam GENERAL: Elderly appearing gentleman comfortable at rest no acute distress VITAL SIGNS: per chart NECK: Supple. No JVD or lymphadenopathy. CARDIAC EXAM: S1, S2. No added sounds or murmurs. CHEST: Diminished air entry bilaterally ABDOMEN: Soft, nontender. No guarding or rebound. EXTREMITIES: No cyanosis, clubbing or edema. NEUROLOGIC: Generalized weakness. No focal deficits. Vent Setting Fraction of Inspired Oxygen pe: 50 Results/Medications Result Diagram: 09/30/18 0641 09/30/18 0641 Results 24 hrs Laboratory Tests Test 09/30/18 06:41 09/30/18 07:00 White Blood Count 6.9 Red Blood Count 3.85 L Hemoglobin 10.8 L Hematocrit 32.6 L Mean Corpuscular Volume 84.7 Mean Corpuscular Hemoglobin 28.1 L Mean Corpuscular Hemoglobin Concent 33.1 Red Cell Distribution Width 16.0 H Platelet Count 226 Mean Platelet Volume 10.6 H Immature Granulocytes % 0.400 Neutrophils % 75.4 Lymphocytes % 13.7 L Monocytes % 9.2 Eosinophils % 1.0 Basophils % 0.3 Nucleated Red Blood Cells % 0.0 Immature Granulocytes # 0.030 Neutrophils # 5.2 Lymphocytes # 0.9 Monocytes # 0.6 Eosinophils # 0.1 Basophils # 0.0 Nucleated Red Blood Cells # 0.0 Sodium Level 137 Potassium Level 3.5 Chloride Level 105 Carbon Dioxide Level 26 Anion Gap 6 Blood Urea Nitrogen 7 Creatinine 0.70 Est Glomerular Filtrat Rate mL/min > 60 Glucose Level 122 Calcium Level 8.3 L Phosphorus Level 3.2 Magnesium Level 2.2 Blood Gas Specimen Source Blood arterial Arterial Blood Date Drawn 09/30/2018 8:29:41 AM Arterial Blood pH (Temp corrected) 7.458 H Arterial Blood pCO2 (Temp correct) 36.3 Arterial Blood pO2 (Temp corrected) 60.6 L Arterial Blood HCO3 25.1 Arterial Blood Base Excess 1.5 Arterial Blood Oxygen Saturation 91.7 L Morgan Test ACCEPTAB Arterial Blood Gas Puncture Site Right Radial Arterial Blood Carboxyhemoglobin 0 Arterial Blood Methemoglobin 0.2 Blood Gas A-a O2 Differential 110.7 H Oxyhemoglobin Percent 91.5 L Blood Gas Temperature 37.0 Blood Gas Modality NASAL CANNULA FiO2 30.0 Blood Gas Notified Whom TM Blood Gas Notified Time 09/30/2018 8:38:20 AM Medications Current Medications IV Flush (NS 3 ml) 3 ml PER PROTOCOL IV ; Start 09/24/18 at 21:30 Acetaminophen (Tylenol Supp) 650 mg Q6H PRN [place] .PAIN 1-3 OR TEMP Last administered on 09/29/18 00:28; Admin Dose 650 MG; Start 09/24/18 at 21:30 Famotidine (Pepcid Iv) 20 mg Q12 IV Last administered on 09/30/18 08:47; Admin Dose 20 MG; Start 09/24/18 at 21:30 Hydromorphone HCl (Dilaudid) 0.5 mg Q6H PRN IV BREAKTHROUGH PAIN Last administered on 09/26/18at 20:38; Admin Dose 0.5 MG; Start 09/25/18 at 19:00 Diphenhydramine HCl (Benadryl) 25 mg Q6H PRN IV ITCHING; Start 09/25/18 at 19:00 Ondansetron HCl (Zofran Inj) 4 mg Q6H PRN IV NAUSEA AND/OR VOMITING; Start 09/25/18 at 19:00 Heparin Sodium (Porcine) (Heparin (5000 Units/1ml)) 5,000 unit Q12 SC Last administered on 09/30/18 09:00; Admin Dose 5,000 UNIT; Start 09/25/18 at 21:00 Nitroglycerin (Nitroglycerin 2% Oint) 0.5 inch Q6 TD Last administered on 09/30 05:58; Admin Dose 0.5 INCH; Start 09/27/18 at 00:00 Piperacillin Sod/ Tazobactam Sod 100 ml @ 200 mls/hr Q6 IVPB Last administered on 09/30/18 05:58; Admin Dose 200 MLS/HR; Start 09/27/18 at 18:00 Dimethicone (Blistex Lip [place]) 1 applic Q2H PRN TOP dry lips; Start 09/28/18 at 14:00 Albuterol/ Ipratropium (Duoneb) 3 ml Q4HWA RESP THERAPY HHN Last administered on 09/30/18 09:16; Admin Dose 3 ML; Start 09/28/18 at 21:00 Potassium Chloride/Dextrose/ Sod Cl 1,000 ml @ 100 mls/hr Q10H IV Last administered on 09/30/18 04:39; Admin Dose 100 MLS/HR; Start 09/28/18 at 20:30 Acetylcysteine (Mucomyst) 3 ml Q4H RESP THERAPY NEB Last administered on 09/30/18 09:17; Admin Dose 3 ML; Start 09/29/18 at 09:00 Assessment/Plan Hospital Course (Demo Recall) IMP: 1. Hypoxemic Respiratory Insufficiency--in a patient POD#5 s/p colonic resection. CXR from 09/27/18 shows new changes not seen 2 days earlier. These findings are most suggestive of combined RLL and RML lobar collapse vs. a hydropneumothorax. RECS: Patient being discharged today. Will require chest x-ray in 1 week's time if no resolution of right lower lobe collapse will require bronchoscopy. This was discussed with primary care team at length. HEATHER SOUZA MD, [facility] Sep 30, 2018 12:45
--- NOTE | 2018-09-30 23:02 | DS ---
DATE OF ADMISSION: 09/25/2018 DATE OF DISCHARGE: 09/30/2018 DISCHARGE DIAGNOSES: 1. A 62-year-old male with right colonic mass and associated small-bowel obstruction. 2. Status post laparotomy and right hemicolectomy. 3. Chronic obstructive pulmonary disease with exacerbation. 4. Right lower lobe pneumonia. 5. Mucus plug. 6. Chronic respiratory failure. HOSPITAL COURSE: A 62-year-old male with history of COPD, presented to emergency room with complaint s of diffuse abdominal pain. The patient was diagnosed with small-bowel obstruction. He was seen in consultation by Dr. Wilcox. The patient was taken to the operating room and found to have a large ri ght colonic mass causing the small-bowel obstruction. The patient underwent a right hemicolectomy. The mass invaded the abdominal wall. The entire lesion was resected. Postoperatively, the patient developed respiratory distress. He was seen in consultation by Dr. Gee rueda. Chest x-ray and a CAT scan were consistent with complete atelectasis of the right middle and lo wer lobes. There was associated consolidation. This was caused by mucus plug. The patient is a chr onic smoker and was found to have a COPD exacerbation. His condition improved during the hospitaliza tion. He had several bowel movements. I started a clear liquid diet and this was well tolerated. At this point, the patient is in stable condition for discharge. I ordered home O2. A repeat chest x-ray showed persistent right lower lobe consolidation with small right pleural effusion. Scattered ground glass infiltrates were noted throughout the lungs. The patient was ambulating in the hallway. He was asymptomatic. PLAN: Discharge home. MEDICATIONS ON DISCHARGE: 1. Levaquin 500 mg p.o. daily x5 days. 2. Breo 1 puff daily. Follow up with PCP in 1 week. Follow up with Dr. Wilcox in 1 week. 3. Follow up with Dr. Boo, the oncologist. I tried to get the pathology result for the colonic mass. The result is pending. Dictated By: LOY SONI/OMID Conf#: [id number] DID#: [id number] CC: GUSTAVO LORENZO MD; HEATHER SOUZA MD; TIFFANY WILCOX MD;*EndCC*
== END 2018-09-30 17:40 | disposition home health service (06) | DRG 329 ==
LOC: E/R 13:21 → 2NE 21:21 → OBSVTOIN 09-25 10:23 → TEL 09-27 01:20
PROVIDERS: ADMIT Internal Medicine; ATTEND Internal Medicine
PROC: 4A133R1 Monitoring of Arterial Saturation, Peripheral, Percutaneous Approach (ICD-10-PCS; 2018-09-24)
PROC: 0DTB0ZZ Resection of Ileum, Open Approach (ICD-10-PCS; 2018-09-25)
PROC: 0DJD4ZZ Inspection of Lower Intestinal Tract, Percutaneous Endoscopic Approach (ICD-10-PCS; 2018-09-25)
PROC: 0DTF0ZZ Resection of Right Large Intestine, Open Approach (ICD-10-PCS; principal; 2018-09-25 16:00)
DX: C18.0 Malignant neoplasm of cecum (principal); J18.1 Lobar pneumonia, unspecified organism; J44.1 Chronic obstructive pulmonary disease with (acute) exacerbation; I50.30 Unspecified diastolic (congestive) heart failure; J98.11 Atelectasis; J96.11 Chronic respiratory failure with hypoxia; K56.0 Paralytic ileus; J44.0 Chronic obstructive pulmonary disease with (acute) lower respiratory infection; K91.71 Accidental puncture and laceration of a digestive system organ or structure during a digestive system procedure; K21.9 Gastro-esophageal reflux disease without esophagitis; R00.0 Tachycardia, unspecified; D72.825 Bandemia; F17.210 Nicotine dependence, cigarettes, uncomplicated; Z53.31 Laparoscopic surgical procedure converted to open procedure; R50.82 Postprocedural fever; J98.09 Other diseases of bronchus, not elsewhere classified
CPT/HCPCS: 36415; 36600; 71045; 71250; 74018; 74176; 80048; 80053; 81001; 81003; 82803; 83036; 83690; 83735; 84100; 84443; 84484; 85025; 85378; 85610; 85651; 85730; 86850; 86900; 86901; 87086; 88104; 88305; 93005; 93306; 94640; 94664; 94667; 94668; 96374; 96375; 97116; 97161; 97530; G0378; J0696; J1170; J1644; J1885; J2250; J2405; J2543; J2710; J2795; J3010; J3480; J7030; J7042

== ENCOUNTER 2018-12-05 09:28 | Observation (INO) | payer OTHER ==
[~2018-12-05] VITALS: Ht 172.7 cm; Wt 70.5 kg
[~2018-12-05 09:28] MED LIST changes: -AMOX500C2 PO; +CAPE500T17 PO; -DOCU-144 PO; +FLUT1AER INHALATION; -IBUP-1542 PO; +LEVO500T48 PO; -METR-122 PO; -OMEP40CA6 PO; +ONDA4TAB13 PO; +POLY17PO6 PO; +PROC10TA10 PO; -[UNRECOGNIZED DRUG - CODE] PO
[2018-12-05] MEDS ORDERED: LACTATED RINGER'S 1,000 ML IV STA (09:58)
[2018-12-05] MEDS ORDERED: KETOROLAC 15 MG INJ IV STA (09:58)
[2018-12-05] MEDS ORDERED: ONDANSETRON 4 MG INJ IV STA (09:58)
--- NOTE | 2018-12-05 09:58 | ERD ---
ER Documentation Chief Complaint Chief Complaint VOMITING X3 DAYS, PT ON CHEMO FOR COLON CANCER, ALSO MILD ABD PAIN HPI 62-year-old male history of COPD and colon cancer status post right hemicolectomy, now receiving chemotherapy most recently 10 days ago presents to the ED complaining of a 2-day history of nausea with multiple episodes of nonbloody nonbilious emesis and constipation. Mild, generalized, crampy abdominal pain. No hematochezia or melanotic stools. Denies chest pain, palpitations or shortness of breath. No relieving or exacerbating factors. No fevers or chills. ROS All systems reviewed and are negative except as per history of present illness. Medications Home Meds Reported Medications Polyethylene Glycol* (Miralax*) 17 Gm Powd.pack, 17 GM PO DAILY, #30 PACKET 12/05/18 Sennosides* (Senna Lax*) 8.6 Mg Tablet, 2 TAB PO DAILY, TAB 12/05/18 Capecitabine* (Xeloda*) 500 Mg Tablet, 2000 MG PO BID, TBS START DATE 11/26/18, TAKE FOR 14 DAYS AND OFF FOR 7 DAYS 12/05/18 Prochlorperazine* (Prochlorperazine*) 10 Mg Tablet, 10 MG PO Q8H PRN for NAUSEA, TAB 12/05/18 Ondansetron Hcl* (Zofran*) 4 Mg Tab, 4 MG PO Q6H PRN for NAUSEA AND OR VOMITING, TAB 12/05/18 Discontinued Scripts Fluticasone-Vilanterol (Breo Ellipta Inhaler) 100-25 Mcg/Actuation Aer.pow.ba, 1 PUFF INHALATION DAILY, #1 INHALER Prov:LOY GARCIA MD 09/30/18 Levofloxacin* (Levaquin*) 500 Mg Tablet, 500 MG PO DAILY for 5 Days, TAB Prov:LOY GARCIA MD 09/30/18 Allergies Allergies: Coded Allergies: No Known Allergy (Unverified , 12/05/18) PMhx/Soc History of Surgery: Yes (COLECTOMY ) Anesthesia Reaction: No Hx Neurological Disorder: No Hx Respiratory Disorders: No Hx Cardiac Disorders: No Hx Psychiatric Problems: No Hx Miscellaneous Medical Probl: Yes (COLON CA , ON CHEMO ) Hx Alcohol Use: No Hx Substance Use: No Hx Tobacco Use: Yes (QUIT 08/2018 ) Smoking Status: Former smoker FmHx No family history relevant to presenting complaint Physical Exam Vitals Vital Signs Date Temp Pulse Resp B/P (MAP) Pulse Ox O2 O2 Flow FiO2 Time Delivery Rate 12/05/18 73 18 127/74 98 Room Air 11:25 (91) 12/05/18 90 18 149/97 97 09:51 (114) 12/05/18 98.0 125 18 164/93 97 09:35 (116) Physical Exam Const: Alert, moderate distress. Head: Atraumatic Eyes: Normal Conjunctiva. sclera anicteric ENT: Normal External Ears, Nose and Mouth. MM moist Neck: Full range of motion. Nontender. No JVD Resp: Clear to auscultation bilaterally Cardio: Regular rate and rhythm, no murmurs Abd: Soft, mild distention and moderate generalized tenderness. No rebound or guarding. Bowel sounds diminished. Well-healed low midline incision. Skin: No petechiae or rashes Back: No midline or flank tenderness Ext: No cyanosis, or edema Neur: Awake and alert. No focal deficit Psych: Normal Mood and Affect Result Diagram: 12/05/18 1011 12/05/18 1011 Results 24 hrs Laboratory Tests Test 12/05/18 10:11 White Blood Count 8.8 10^3/ul Red Blood Count 5.56 10^6/ul Hemoglobin 16.4 g/dl Hematocrit 48.6 % Mean Corpuscular Volume 87.4 fl Mean Corpuscular Hemoglobin 29.5 pg Mean Corpuscular Hemoglobin Concent 33.7 g/dl Red Cell Distribution Width 19.6 % Platelet Count 162 10^3/UL Mean Platelet Volume 9.5 fl Immature Granulocytes % 0.500 % Neutrophils % 68.7 % Lymphocytes % 17.7 % Monocytes % 12.8 % Eosinophils % 0.1 % Basophils % 0.2 % Nucleated Red Blood Cells % 0.0 /100WBC Immature Granulocytes # 0.040 10^3/ul Neutrophils # 6.1 10^3/ul Lymphocytes # 1.6 10^3/ul Monocytes # 1.1 10^3/ul Eosinophils # 0.0 10^3/ul Basophils # 0.0 10^3/ul Nucleated Red Blood Cells # 0.0 10^3/ul Urine Color MIRELLA Urine Clarity SLIGHTLY CLOUDY Urine pH 5.0 Urine Specific [place] 1.031 Urine Ketones NEGATIVE mg/dL Urine Nitrite NEGATIVE mg/dL Urine Bilirubin NEGATIVE mg/dL Urine Urobilinogen NEGATIVE mg/dL Urine Leukocyte Esterase NEGATIVE Jose/ul Urine Microscopic RBC 9 /HPF Urine Microscopic WBC 5 /HPF Urine Squamous Epithelial Cells FEW /HPF Urine Bacteria FEW /HPF Urine Mucus MANY /HPF Urine Hemoglobin 1+ mg/dL Urine Glucose 1+ mg/dL Urine Total Protein 3+ mg/dl Sodium Level 137 mmol/L Potassium Level 4.9 mmol/L Chloride Level 98 mmol/L Carbon Dioxide Level 30 mmol/L Anion Gap 9 Blood Urea Nitrogen 13 mg/dl Creatinine 0.79 mg/dl Est Glomerular Filtrat Rate mL/min > 60 mL/min Glucose Level 148 mg/dl Calcium Level 10.6 mg/dl Total Bilirubin 2.6 mg/dl Direct Bilirubin 0.00 mg/dl Indirect Bilirubin 2.6 mg/dl Aspartate Amino Transf (AST/SGOT) 58 IU/L Alanine Aminotransferase (ALT/SGPT) 62 IU/L Alkaline Phosphatase 132 IU/L Total Protein 9.0 g/dl Albumin 4.7 g/dl Globulin 4.30 g/dl Albumin/Globulin Ratio 1.09 Lipase 272 U/L Current Medications Medications Dose Sig/Tessa Start Time Status Last (Trade) Ordered Route PRN Stop Time Admin Dose Reason Admin Lactated 1,000 ml @ Q1H STAT 12/05/18 DC 12/05/18 Ringer's 1,000 mls/hr IV 09:58 12/05/18 10:07 10:57 Ondansetron 4 mg ONCE STAT 12/05/18 DC 12/05/18 HCl (Zofran IV 09:58 12/05/18 10:07 Inj) 10:03 Ketorolac 15 mg ONCE STAT 12/05/18 DC 12/05/18 Tromethamine IV 09:58 12/05/18 10:07 (Toradol) 10:03 Procedures/MDM DOCUMENTS REVIEWED: ED nurse, prior ED, prior records IMAGING: PROCEDURE: CT Abdomen and Pelvis without contrast. CLINICAL INDICATION: Vomiting. TECHNIQUE: Volumetrically-acquired images of the abdomen and pelvis were obtained without the administration of intravenous contrast. Images were then reformatted in the axial, sagittal, and coronal planes. DICOM images are availa ble. CTDIvol (mGy): 10.76; Total Exam DLP (mGy-cm): 623.46. One or more of the following dose reduction techniques were utilized: - Automated exposure control. - Adjustment of the mA and/or kV according to patient size. - Use of iterative reconstruction technique. COMPARISON: 09/24/2018. FINDINGS: Lower thorax: Scattered mild scarring versus atelectatic changes seen within the lung bases. Liver: Unremarkable noncontrast appearance. Biliary: Normal gallbladder. No biliary dilatation. Spleen: Normal. Pancreas: Unremarkable noncontrast appearance. Adrenal Glands: Normal. Urinary: The kidneys are symmetric in size. There are no nephroureteral stones. There is no hydronephrosis. There is no perinephric inflammation. The bladder is unremarkable. Gastrointestinal: The stomach is moderately distended with fluid. New surgical changes are seen within the right lower quadrant compatible with partial bowel excision. There is no abnormality of the anastomosis. Numerous loops of fluid- filled dilated small bowel are seen throughout the mid abdomen with the largest loops measuring 4.5 cm in diameter. There is a focal transition point with distortion of the mesentery within the midportion of the abdomen. There is mild edema of the involved mesentery. There is no pneumatosis. There is a small 1.6 cm fatty nodule along the anterior aspect of the descending colon which is smaller in size from 2.5 cm on prior examination and likely reflects evolving changes of fat necrosis. Lymph nodes: No lymphadenopathy. Vascular: The abdominal aorta is normal in caliber. Peritoneum/mesentery: No free fluid or free air. Reproductive organs: The prostate gland and seminal vesicles are unremarkable. Musculoskeletal: Degenerative changes of the spine are observed. Additional comments: None. IMPRESSION: Numerous loops of dilated fluid-filled bowel with scattered air-fluid levels and focal transition point within the ventral midabdomen. There is also edema of the involved mesentery. Imaging findings are compatible with a small bowel obstruction. Small fatty nodule of the right anterior aspect of the abdomen, smaller in size since previous examination. Imaging appearance favors evolving changes of fat necrosis. RPTAT: QQ .Katarzyna Whitehead MD, Date Time Electronically viewed and signed by .Katarzyna Whitehead MD, on 12/05/2018 11:13 .T/ MEDICAL DECISION MAKIN-year-old male history of COPD and colon cancer status post right hemicolectomy and now receiving chemotherapy most recently 10 days ago presents to the ED complaining of a 2-day history of nausea with multiple episodes of nonbloody nonbilious emesis and constipation. CBC to evaluate for anemia, leukocytosis/ leukopenia and thrombocytopenia is unremarkab le. Chemistry reveals no evidence of electrolyte abnormalities, renal insufficiency or hyperglycemia. CT scan of the abdomen and pelvis reveals findings consistent with small bowel obstruction. Admit to [facility] for surgical consultation, further evaluation and management. CARE TRANSFERRED: Time: 11:58. Dr Xuan Garcia Counseled patient and family regarding diagnostic workup, diagnosis and need for admission. Departure Diagnosis: Primary Impression: Small bowel obstruction Additional Impressions: Acute generalized abdominal pain History of colon cancer Status post right hemicolectomy Condition: Serious CHAD PÉREZ MD Dec 05, 2018 09:58
--- NOTE | 2018-12-05 12:29 | CONS ---
Assessment/Plan Assessment/Plan Assessment/Plan (Daily) CT findings suggest small bowel obstruction. Plan: Small bowel follow-through This patient is 9 weeks status post right hemicolectomy with Dr. Gregory who was not available this weekend. We will see the patient through the weekend and then transfer the surgical care back to Dr. Gregory. Further recommendations will be forthcoming based on the patient's further work-up and clinical course. 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 Last week he started his second course of chemotherapy. For the last 3 days he has had nausea and vomiting with diminished bowel movements. Today a CT scan in the emergency room suggested small bowel obstruction. The patient states that his nausea has improved and that he has had a small bowel movement last night. Review of systems HEENT: Within normal limits Cardiac: No history of chest pain, MD or arrhythmia GI: As in the HPI : Asymptomatic Past Medical History Medical History: other (Syndrome of cecum) Home Meds Reported Medications Polyethylene Glycol* (Miralax*) 17 Gm Powd.pack, 17 GM PO DAILY, #30 PACKET 12/05/18 Sennosides* (Senna Lax*) 8.6 Mg Tablet, 2 TAB PO DAILY, TAB 12/05/18 Capecitabine* (Xeloda*) 500 Mg Tablet, 2000 MG PO BID, TBS START DATE 11/26/18, TAKE FOR 14 DAYS AND OFF FOR 7 DAYS 12/05/18 Prochlorperazine* (Prochlorperazine*) 10 Mg Tablet, 10 MG PO Q8H PRN for NAUSEA, TAB 12/05/18 Ondansetron Hcl* (Zofran*) 4 Mg Tab, 4 MG PO Q6H PRN for NAUSEA AND OR VOMITING, TAB 12/05/18 Discontinued Scripts Fluticasone-Vilanterol (Breo Ellipta Inhaler) 100-25 Mcg/Actuation Aer.pow.ba, 1 PUFF INHALATION DAILY, #1 INHALER Prov:LOY ADAME MD 09/30/18 Levofloxacin* (Levaquin*) 500 Mg Tablet, 500 MG PO DAILY for 5 Days, TAB Prov:LOY ADAME MD 09/30/18 Medications Current Medications Ondansetron HCl (Zofran Inj) 4 mg BRIDGE ORDER PRN IV NAUSEA/VOMITING; Start 12/05/18 at 12:30; Stop 12/06/18 at 12:29 Acetaminophen (Tylenol Tab) 650 mg ER BRIDGE PRN PO .MILD PAIN 1-3 OR TEMP; Start 12/05/18 at 12:30; Stop 12/06/18 at 12:29 Allergies: Coded Allergies: No Known Allergy (Unverified , 12/05/18) Past Surgical History Past Surgical Hx: no surgical history, other (Right hemicolectomy on 09/25/2018) Family History Significant Family History: no pertinent family hx Social History Smoking Status: Former smoker Exam/Review of Systems Exam Vitals Vital Signs Date Temp Pulse Resp B/P (MAP) Pulse Ox O2 O2 Flow FiO2 Time Delivery Rate 12/05/18 73 18 127/74 98 Room Air 11:25 (91) 12/05/18 98.0 09:35 Constitutional: alert, oriented Psych: no complaints Head: normocephalic Eyes: nl conjunctiva ENMT: nl external ears & nose Neck: supple Respiratory: clear to auscultation, normal air movement Cardiovascular: regular rate and rhythm Gastrointestinal: soft (There is a puckered upper vertical midline incision without hernia or masses), non-tender Neurological: nl mental status Skin: nl turgor Results Result Diagram: 12/05/18 1011 12/05/18 1011 Results 24hrs Laboratory Tests Test 12/05/18 10:11 White Blood Count 8.8 # Red Blood Count 5.56 # Hemoglobin 16.4 # Hematocrit 48.6 # Mean Corpuscular Volume 87.4 Mean Corpuscular Hemoglobin 29.5 Mean Corpuscular Hemoglobin Concent 33.7 Red Cell Distribution Width 19.6 #H Platelet Count 162 # Mean Platelet Volume 9.5 Immature Granulocytes % 0.500 H Neutrophils % 68.7 Lymphocytes % 17.7 Monocytes % 12.8 H Eosinophils % 0.1 Basophils % 0.2 Nucleated Red Blood Cells % 0.0 Immature Granulocytes # 0.040 H Neutrophils # 6.1 Lymphocytes # 1.6 Monocytes # 1.1 H Eosinophils # 0.0 Basophils # 0.0 Nucleated Red Blood Cells # 0.0 Urine Color MIRELLA Urine Clarity SLIGHTLY CLOUDY A Urine pH 5.0 Urine Specific [place] 1.031 H Urine Ketones NEGATIVE Urine Nitrite NEGATIVE Urine Bilirubin NEGATIVE Urine Urobilinogen NEGATIVE Urine Leukocyte Esterase NEGATIVE Urine Microscopic RBC 9 H Urine Microscopic WBC 5 Urine Squamous Epithelial Cells FEW Urine Bacteria FEW A Urine Mucus MANY A Urine Hemoglobin 1+ H Urine Glucose 1+ H Urine Total Protein 3+ H Sodium Level 137 Potassium Level 4.9 Chloride Level 98 Carbon Dioxide Level 30 Anion Gap 9 Blood Urea Nitrogen 13 Creatinine 0.79 Est Glomerular Filtrat Rate mL/min > 60 Glucose Level 148 Calcium Level 10.6 H Total Bilirubin 2.6 H Direct Bilirubin 0.00 Indirect Bilirubin 2.6 H Aspartate Amino Transf (AST/SGOT) 58 H Alanine Aminotransferase (ALT/SGPT) 62 Alkaline Phosphatase 132 H Total Protein 9.0 H Albumin 4.7 Globulin 4.30 H Albumin/Globulin Ratio 1.09 Lipase 272 Medications Medication Current Medications Ondansetron HCl (Zofran Inj) 4 mg BRIDGE ORDER PRN IV NAUSEA/VOMITING; Start 12/05/18 at 12:30; Stop 12/06/18 at 12:29 Acetaminophen (Tylenol Tab) 650 mg ER BRIDGE PRN PO .MILD PAIN 1-3 OR TEMP; Start 12/05/18 at 12:30; Stop 12/06/18 at 12:29 SUNITHA GALLARDO MD Dec 05, 2018 12:29
[2018-12-05] MEDS ORDERED: ACETAMINOPHEN 325 MG TAB PO PRN (12:30)
[2018-12-05] MEDS ORDERED: ONDANSETRON 4 MG INJ IV PRN ×2 (12:30→16:00)
[2018-12-05] MEDS ORDERED: IOHEXOL 300MG/ML 150 ML BTL ONE (12:32)
[2018-12-05 15:12] VITALS: Ht 172.7 cm; Wt 70.5 kg
[2018-12-05 16:00] VITALS: BP 137/73; PULSE 86; RESP 18
[2018-12-05] MEDS ORDERED: morphine 4 MG/ML VIAL IV PRN (16:00)
[2018-12-05] MEDS: DEXTROSE 5%-0.45% NACL 1,000 ML IV SCH (16:01)
[2018-12-05 20:03] VITALS: BP 111/66; PULSE 99; RESP 18
--- NOTE | 2018-12-05 23:52 | HP ---
DATE OF ADMISSION: 12/05/2018 CHIEF COMPLAINT: Nausea and vomiting. HISTORY OF PRESENT ILLNESS: A 62-year-old male with history of colon cancer status post right hemico lectomy more than 2 months prior to admission, presented to Emergency Room with complaint of nausea a nd vomiting since earlier in the day. The patient denies having any abdominal pain. He denies havin g flatus. No fevers or chills. No hematemesis. The patient finished his second course of chemother apy the week prior to admission. CAT scan of the abdomen and pelvis was consistent with a small-suyapa l obstruction. PAST MEDICAL HISTORY: Colon cancer. PAST SURGICAL HISTORY: Status post right hemicolectomy on 09/25/2018. SOCIAL HISTORY: The patient lives at home. He has remote history of tobacco use. PHYSICAL EXAMINATION: GENERAL: Well-developed, well-nourished male who is in no apparent distress. VITAL SIGNS: Stable. He is afebrile. HEENT: Extraocular muscles intact. Pupils equal and reactive to light bilaterally. Sclerae are ani cteric. Oropharynx is clear and moist. NECK: Supple, no JVD, no carotid bruits. LUNGS: Clear to auscultation bilaterally. CARDIAC: Regular rate and rhythm. No murmurs or gallops. ABDOMEN: Soft, nontender. Decreased bowel sounds. EXTREMITIES: No clubbing, cyanosis, or edema. NEUROLOGICAL: Nonfocal. LABORATORY DATA: WBC 8.8, hemoglobin 16.4, platelet count 162,000. Basic metabolic panel within nor mal limits. Calcium 10.6, albumin 4.7, lipase 272. ASSESSMENT: 1. A 62-year-old male presenting with nausea and vomiting. CAT scan of the abdomen and pelvis shows numerous loops of dilated filled bowel with air-fluid levels. 2. Colon cancer, undergoing chemotherapy. 3. Status post right hemicolectomy on 09/25/2018. PLAN: 1. Place in Med/Surg observation n.p.o., IV fluid hydration, pain control, antiemetics associated wi upper GI and small bowel follow through. 2. Surgical consultation was requested, and case was discussed with Dr. Tapia. I spoke to Dr. James holland, who performed a right hemicolectomy previously. However, he refused to see the patient in consult ation. Dictated By: LOY SONI/OMID Conf#: [id number] DID#: [id number] CC: LOY ADAME MD;*EndCC*
[2018-12-06] MEDS: DEXTROSE 5%-0.45% NACL 1,000 ML IV SCH ×3 (01:26→22:00)
[2018-12-06 02:32] VITALS: BP 121/71; PULSE 77; RESP 16
[2018-12-06 07:41] VITALS: BP 132/80; PULSE 82; RESP 18
--- NOTE | 2018-12-06 08:45 | QN ---
Documentation Comment Small bowel follow-through suggest small bowel obstruction Large output through NG tube No bowel function KUB pending If does not resolve by tomorrow, will require exploratory laparotomy SUNITHA GALLARDO MD Dec 06, 2018 08:45
--- NOTE | 2018-12-06 11:53 | PN ---
Date/Time of Note Date/Time of Note DATE: 12/06/18 TIME: 11:51 Subjective Doing well. No complaint of chest pain or shortness of breath. No abdominal pain nausea or vomiting. He had a bowel movement. Objective Vitals Vital Signs Date Temp Pulse Resp B/P (MAP) Pulse Ox O2 O2 Flow FiO2 Time Delivery Rate 12/06/18 99.4 82 18 132/80 95 07:41 (97) 12/05/18 Room Air 14:29 Intake and Output 12/05/18 12/05/18 12/06/18 1515:00 23:00 07:00 IntakeIntake Total 280 ml 1075 ml OutputOutput Total 240 ml 600 ml BalanceBalance 40 ml 475 ml Clear to auscultation bilaterally Regular rate and rhythm Soft nontender nondistended decreased bowel sounds No edema Nonfocal Results Result Diagram: 12/06/18 1131 12/05/18 1011 Medications Medications Current Medications Dextrose/Sodium Chloride 1,000 ml @ 100 mls/hr Q10H IV Last administered on 12/06/18at 01:26; Admin Dose 100 MLS/HR; Start 12/05/18 at 16:00 Ondansetron HCl (Zofran Inj) 4 mg Q4H PRN IV NAUSEA AND/OR VOMITING Last administered on 12/05/18at 21:51; Admin Dose 4 MG; Start 12/05/18 at 16:00 Morphine Sulfate (morphine) 2 mg Q3H PRN IV SEVERE PAIN LEVEL 7-10 Last administered on 12/05/18at 23:41; Admin Dose 2 MG; Start 12/05/18 at 16:00 VTE Prophylaxis Risk score (from Nsg)>0 risk: 3 SCD applied (from Nsg): Yes Lines/Catheters IV Catheter Type: Saline Lock Holden in Place: No Assessment/Plan Assessment/Plan 62-year-old male with SBO, status post NG tube placement with significant output. He had a bowel movement History of colon cancer. Status post right hemicolectomy on September 25, 2018, undergoing chemotherapy Continue n.p.o. NG tube to intermittent suction Surgical follow-up LOY ADAME MD Dec 06, 2018 11:53
--- NOTE | 2018-12-06 14:15 | OPR ---
Date/Time of Note Date/Time of Note DATE: 12/06/18 TIME: 14:07 Operative Report Procedure Date: Dec 06, 2018 Preoperative Diagnosis 1. Pneumoperitoneum 2. Incarcerated recurrent right inguinal hernia and secondary small bowel obstruction Postoperative Diagnosis Incarcerated recurrent right inguinal hernia. No pneumoperitoneum Operation/Procedure Performed 1. Exploratory laparotomy 2. Repair recurrent right inguinal hernia with extra large plug Surgeon Sunitha Gallardo MD Auto Body Mechanic None Anesthesia Type: general Anesthesiologist: FELIX BOLAND Estimated Blood Loss: 50 - 100 ml's Transfusion none Specimen None Grafts/Implants Extra-large Bard PerFix plug and patch Tubes/Drains None Complications none Pt Condition Post Procedure: stable Disposition: PACU Indications Small bowel obstruction and pneumoperitoneum Procedure Description After satisfactory general endotracheal anesthesia was achieved, a Holden catheter was placed and the abdomen was prepped and draped in the usual fashion. The right inguinal hernia was able to be reduced after the patient was asleep and paralyzed. The abdomen was entered through a vertical midline incision. Abdominal exploration showed no evidence of bowel perforation. The small bowel was run from the ileocecal valve retrograde to the ligament of Treitz. The segment of small bowel which was involved in the hernia was clearly viable. The entire colon was normal. The stomach and duodenum were normal. After discussion with the radiologist from the operating room it became apparent that the pneumoperitoneum was reported earlier was very likely an over read. The bowel was run for a second time from the esophagus to the stomach and duodenum, the entire small bowel and colon. There was no perforation or compromised bowel. The right inguinal hernia which was recurrent was deep in the pelvis and too large for true peritoneal repair. The viscera were then replaced into the abdomen which was then closed with 2 running sutures en loyda of #2 Vicryl. Skin was closed with helio. Next a transverse skin incision was made in the right groin through the previous scar down to the level of the external oblique which was opened. The cord was encircled and preserved throughout the pro cedure. There was a large direct sac which was dissected circumferentially and reduced. The reduction was maintained by placement of an extra-large plug secured circumferentially to healthy fascia with interrupted 2-0 Vicryl suture. Next the flat portion of the mesh was cut and fashioned to fit in the floor the canal is an overlay. It was anchored at the pubic tubercle with 2-0 Novafil. It was anchored laterally to inguinal ligament with interrupted 2-0 Novafil, and medially to conjoined tendon with interrupted 2-0 Novafil. The mesh distal to the cord was reconstituted with a single suture of 2-0 Novafil creating a new internal ring of appropriate size. The cord was then replaced below Rubi's fascia which was then closed with interrupted 3-0 Vicryl suture. Skin was closed with helio. Sponge, needle, and instrument counts were reported as correct x2. SUNITHA GALLRADO MD Dec 06, 2018 14:15
[2018-12-06] MEDS ORDERED: OXYCODONE/ACETAMINOPHEN (5/325) TAB PO PRN ×2 (14:30)
[2018-12-06] MEDS ORDERED: morphine 2 MG INJ IV PRN (14:30)
[2018-12-06] MEDS ORDERED: ONDANSETRON 4 MG INJ IV PRN (14:30)
[2018-12-06 15:23] VITALS: BP 124/71; PULSE 81; RESP 16
[2018-12-06 19:34] VITALS: BP 128/76; PULSE 76; RESP 17
[2018-12-07] MEDS: DEXTROSE 5%-0.45% NACL 1,000 ML IV SCH ×2 (00:04→10:37)
[2018-12-07 02:46] VITALS: BP 133/73; PULSE 82; RESP 18
[2018-12-07 07:35] VITALS: BP 120/72; PULSE 84; RESP 18
--- NOTE | 2018-12-07 09:01 | QN ---
Documentation Comment The NG tube is out The patient is tolerating clear liquids and feels well overall He has had another bowel movement Follow-up KUB result is pending Abdominal examination is benign Plan: Full liquids. If tolerates and x-ray improved, can be discharged with outpatient follow-up SUNITHA GALLARDO MD Dec 07, 2018 09:01
--- NOTE | 2018-12-07 12:57 | PDOCDIS ---
Discharge Instructions CONDITION [id number] Patient Condition: [id number] Good HOME CARE INSTRUCTIONS: [id number] Diet Instructions: [id number] Regular ACTIVITY: [id number] Activity Restrictions: [id number] No Restrictions FOLLOW UP/APPOINTMENTS Follow-up Plan pcp 1 week oncology 1 week LOY ADAME MD Dec 07, 2018 12:57
[2018-12-07 14:45] VITALS: BP 126/69; PULSE 85; RESP 16
--- NOTE | 2018-12-07 17:13 | DS ---
DATE OF ADMISSION: 12/05/2018 DATE OF DISCHARGE: 12/07/2018 DISCHARGE DIAGNOSES: 1. A 62-year-old male with small-bowel obstruction, resolved. 2. Colon cancer, status post hemicolectomy on 09/25/2018. PROCEDURE DURING HOSPITALIZATION: Abdominal pelvic CT, upper GI with small bowel follow-through. HOSPITAL COURSE: A 62-year-old male with history of colon cancer, status post hemicolectomy on 09/25, undergoing chemotherapy, presented to emergency room with complaint of nausea and vomiting. I nitial CAT scan of the abdomen and pelvis showed evidence of small-bowel obstruction. The patient was kept n.p.o. following admission. Small bowel series showed suspicion for a high-grad e small-bowel obstruction. The patient was seen in consultation by Dr. Gallardo. NG tube was placed t o intermittent suction. The patient had 2 bowel movements during the hospitalization. NG tube was r emoved and the patient was started on a clear liquid diet. He is in stable condition for discharge. Nausea and vomiting may be due to Xeloda which he takes orally twice daily. I prescribed Zofran. T he patient was asked to advance his diet slowly. He will follow up with his PCP and oncologist as ou tpatient. Dictated By: LOY SONI/NTS Conf#: [id number] DID#: [id number] CC: SUNITHA GALLARDO MD;*EndCC*
== END 2018-12-07 15:30 | disposition home or self-care (01) ==
LOC: E/R 09:28 → 2NE 12:20 → INTOOBSV 12:20
PROVIDERS: ADMIT Internal Medicine; ATTEND Internal Medicine
DX: K56.609 Unspecified intestinal obstruction, unspecified as to partial versus complete obstruction (principal); K40.31 Unilateral inguinal hernia, with obstruction, without gangrene, recurrent; C18.9 Malignant neoplasm of colon, unspecified; Z87.891 Personal history of nicotine dependence
CPT/HCPCS: 36415; 49521; 71045; 74018; 74176; 74250; 80048; 80053; 81001; 83690; 85025; 96374; 96375; 97161; J1885; J2270; J2405; J7042; J7120; Q9967; Z7500; Z7502; Z7610; 99217; G0378

== ENCOUNTER 2018-12-08 18:40 | Inpatient (IN) | payer OTHER ==
[~2018-12-08] VITALS: Ht 172.7 cm; Wt 68.1 kg
[~2018-12-08 18:40] MED LIST changes: -FLUT1AER INHALATION; -LEVO500T48 PO
--- NOTE | 2018-12-08 20:00 | ERD ---
ER Documentation Chief Complaint Chief Complaint D/C'D 1DAY AGO; N/V; ON CHEMO FOR COLON CA HPI This is a 62-year-old man discharged just yesterday from this hospital after being admitted for small bowel obstruction and vomiting, he is status post right inguinal herniorrhaphy a few days ago as well. He states day of discharge he o nly had one episode of vomiting although after he got home he had multiple episodes (about 6) and then today he has had over 10 episodes of clear nonbloody nonbilious emesis. He complains of continued abdominal cramping as well and has had multiple episodes of diarrhea today. Patient denies blood per rectum or melena, no fevers or chills, no chest pain or shortness of breath ROS All systems reviewed and are negative except as per history of present illness. Medications Home Meds Active Scripts Ondansetron Hcl* (Zofran*) 4 Mg Tab, 4 MG PO Q6H PRN for NAUSEA AND OR VOMITING for 10 Days, TAB Prov:LOY ADAME MD 12/07/18 Reported Medications Polyethylene Glycol* (Miralax*) 17 Gm Powd.pack, 17 GM PO DAILY, #30 PACKET 12/05/18 Sennosides* (Senna Lax*) 8.6 Mg Tablet, 2 TAB PO DAILY, TAB 12/05/18 Capecitabine* (Xeloda*) 500 Mg Tablet, 2000 MG PO BID, TBS START DATE 11/26/18, TAKE FOR 14 DAYS AND OFF FOR 7 DAYS 12/05/18 Prochlorperazine* (Prochlorperazine*) 10 Mg Tablet, 10 MG PO Q8H PRN for NAUSEA, TAB 12/05/18 Discontinued Scripts Fluticasone-Vilanterol (Breo Ellipta Inhaler) 100-25 Mcg/Actuation Aer.pow.ba, 1 PUFF INHALATION DAILY, #1 INHALER Prov:LOY ADAME MD 09/30/18 Levofloxacin* (Levaquin*) 500 Mg Tablet, 500 MG PO DAILY for 5 Days, TAB Prov:LOY ADAME MD 09/30/18 Allergies Allergies: Coded Allergies: No Known Allergy (Unverified , 12/05/18) PMhx/Soc History of colon carcinoma status post right hemicolectomy, COPD, recent small bowel obstruction status post right inguinal herniorrhaphy a couple of days ago History of Surgery: Yes (S/P RT HEMICOLECTOMY 9 WEEKS AGO ) Anesthesia Reaction: No Hx Neurological Disorder: No Hx Respiratory Disorders: No (FORMER SMOKER ) Hx Cardiac Disorders: No Hx Psychiatric Problems: No Hx Miscellaneous Medical Probl: Yes (CURRENTLY ON CHEMO ) Hx Alcohol Use: Yes Hx Substance Use: No Hx Tobacco Use: No FmHx Family History: No diabetes Physical Exam Vitals Vital Signs Date Temp Pulse Resp B/P (MAP) Pulse Ox O2 O2 Flow FiO2 Time Delivery Rate 12/08/18 97 20 107/62 95 Nasal 2.0 22:13 (77) Cannula 12/08/18 91 20 134/80 96 Nasal 2.0 20:30 (98) Cannula 12/08/18 98.0 129 20 137/66 98 18:45 (89) Physical Exam GENERAL: Well-developed, appears dehydrated, afebrile HEENT: Dry mucous membranes, pink conjunctive, no JVD NEURO: Alert and oriented 3, cranial nerves II through XII intact bilaterally, pupils equal round reactive to light, no focal deficits or facial asymmetry, CARDIAC: Regular rate and rhythm, no murmurs rubs or gallops LUNGS: Clear bilaterally no wheezing crackles or stridor ABDOMEN: Soft nontender, no guarding, no rigidity, no rebound, no psoas sign no obturator sign. SKIN: Warm and dry to touch, no abrasions, contusions, or hematomas, no lacerations, no ecchymosis, no target lesions, and without ulcers EXTREMITIES: No clubbing cyanosis or edema, calves are bilaterally symmetrical, no Homans sign, no popliteal cord sign. Distal pulses equal and bilateral PSYCH: Normal affect without agitation or irritability Result Diagram: 12/08/18 2017 12/08/182016 Results 24 hrs Laboratory Tests Test 12/08/18 20:17 White Blood Count 11.8 10^3/ul Red Blood Count 5.50 10^6/ul Hemoglobin 16.2 g/dl Hematocrit 47.5 % Mean Corpuscular Volume 86.4 fl Mean Corpuscular Hemoglobin 29.5 pg Mean Corpuscular Hemoglobin Concent 34.1 g/dl Red Cell Distribution Width 20.0 % Platelet Count 191 10^3/UL Mean Platelet Volume 9.7 fl Immature Granulocytes % 0.700 % Neutrophils % % Lymphocytes % % Monocytes % % Eosinophils % % Basophils % % Nucleated Red Blood Cells % 0.3 /100WBC Immature Granulocytes # 0.080 10^3/ul Neutrophils # 10^3/ul Lymphocytes # 10^3/ul Monocytes # 10^3/ul Eosinophils # 10^3/ul Basophils # 10^3/ul Nucleated Red Blood Cells # 10^3/ul Sodium Level 132 mmol/L Potassium Level 3.4 mmol/L Chloride Level 82 mmol/L Carbon Dioxide Level 32 mmol/L Anion Gap 18 Blood Urea Nitrogen 45 mg/dl Creatinine 1.67 mg/dl Est Glomerular Filtrat Rate mL/min 42 mL/min Glucose Level 148 mg/dl Calcium Level 10.2 mg/dl Total Bilirubin 2.5 mg/dl Direct Bilirubin 0.00 mg/dl Indirect Bilirubin 2.5 mg/dl Aspartate Amino Transf (AST/SGOT) 89 IU/L Alanine Aminotransferase (ALT/SGPT) 106 IU/L Alkaline Phosphatase 130 IU/L Total Protein 9.6 g/dl Albumin 5.0 g/dl Globulin 4.60 g/dl Albumin/Globulin Ratio 1.08 Lipase 761 U/L Current Medications Medications Dose Sig/Tessa Start Time Status Last (Trade) Ordered Route PRN Stop Time Admin Dose Reason Admin Lactated 1,000 ml @ Q1H STAT 12/08/18 DC 12/08/18 Ringer's 1,000 mls/hr IV 20:10 20:19 12/08/18 21:09 Ondansetron 4 mg ONCE STAT 12/08/18 DC 12/08/18 HCl (Zofran IV 20:10 20:19 Inj) 12/08/18 20:12 [facility] IV line was established patient was placed on monitor car operator rhythm strip revealed a sinus rhythm at about 80 bpm with upright P and T waves. Patient was afebrile I administered 1 L LR and Zofran 4 mg IV. CBC was unremarkable, electrolytes abnormal with hyponatremia at 132, hypokalemia 3.4, dehydration and acute kidney injury with a BUN/creatinine of 45/1.7, liver function tests revealed transaminitis, C. difficile toxoid is also been ordered results are pending CT scan of the abdomen pelvis without contrast was performed revealing stable small bowel obstruction with transition point, please refer to radiologist dictation for full report. I spoke to the patient's health care directed physician Dr. Marinelli regarding the patient's recent admission, today's work-up, and lab values. Patient will be admitted to [facility] for continued IV hydration and electrolyte supplementation. Departure Diagnosis: Primary Impression: Intractable vomiting Vomiting type: unspecified Nausea presence: with nausea Qualified Codes: R11.2 - Nausea with vomiting, unspecified Additional Impressions: Acute dehydration Acute kidney injury Acute hypokalemia Acute hyponatremia Small bowel obstruction Condition: BRITTON Nguyen MD Dec 08, 2018 20:00
[2018-12-08] MEDS ORDERED: LACTATED RINGER'S 1,000 ML IV STA (20:10)
[2018-12-08] MEDS ORDERED: ONDANSETRON 4 MG INJ IV STA (20:10)
[2018-12-09 00:25] VITALS: BP 134/74; PULSE 108; RESP 17
[2018-12-09 00:46] VITALS: Ht 172.7 cm; Wt 68.1 kg
--- NOTE | 2018-12-09 01:49 | QN ---
Documentation Comment H&P dict a/p 1. gi: persistent vomiting, presumed related to sbno vs ileus (b) elevation lft and lipase, check abdo us (c0 colon Ca 2. acute renal failure, likely related to hypovolemia SUZANNA ECHOLS MD Dec 09, 2018 01:49
[2018-12-09] MEDS ORDERED: morphine 4 MG/ML VIAL IV PRN (02:00)
[2018-12-09] MEDS ORDERED: ACETAMINOPHEN 325 MG TAB PO PRN (02:00)
[2018-12-09] MEDS ORDERED: ONDANSETRON 4 MG INJ IV PRN (02:00)
--- NOTE | 2018-12-09 03:45 | HP ---
DATE OF ADMISSION: 12/08/2018 CHIEF COMPLAINT: Vomiting. HISTORY OF PRESENT ILLNESS: The patient presents to the emergency room at [facility] with v omiting. He was recently admitted to this hospital with vomiting and was diagnosed with a small-suyapa l obstruction. This eventually required exploratory laparotomy, which revealed an incarcerated ingui nal hernia which was repaired. Patient apparently tolerated clear liquid diets on the day following surgery and was discharged home that same day; however, he has been having ongoing vomiting since arr iving at home and returns to the hospital. PAST MEDICAL HISTORY: Significant for colon cancer. OUTPATIENT MEDICATIONS: Include: Xeloda Zofran, Compazine. ALLERGIES: NO KNOWN DRUG ALLERGIES. SOCIAL HISTORY: The patient lives at home in [place] with his . Is independent with act ivities of daily living. Denies tobacco, alcohol, or illicit drug use. FAMILY HISTORY: Noncontributory. REVIEW OF SYSTEMS: Five systems reviewed and found not to be revealing. PHYSICAL EXAMINATION: VITAL SIGNS: Blood pressure is 109/56, pulse rate 94, respirations 20, temperature is 98, satting 96 % on room air. GENERAL: Pleasant man in no acute distress. Alert and oriented x3. HEENT: Normocephalic, atraumatic without evidence of scleral icterus or perioral cyanosis. Mucous m embranes are moist. NECK: Soft and supple without masses. No evidence of jugular venous distention or carotid bruits. CHEST: Clear to auscultation and percussion bilaterally. HEART: Regular rate and rhythm, S1-S2, no added sounds. ABDOMEN: Soft, nontender, nondistended. No palpable hepatosplenomegaly. There is a well-healed, lo w midline incision from prior colon cancer. SKIN: Without rashes. NEUROLOGIC: Grossly intact. LABORATORY STUDIES: Reveal hemoglobin 16.2 g/dL, white count 11,800, platelets of 191,000. Sodium 1 32, potassium 3.4, chloride 82, bicarbonate 32, BUN 45, creatinine 1.67, glucose 148. Liver function tests remarkable for an AST of 89, ALT 106, alkaline phosphatase 130, total bilirubin 2.5, lipase [address] scan of abdomen and pelvis reveals stable appearance of small-bowel obstruction in the mid abd omen. ASSESSMENT AND PLAN: 1. Gastrointestinal: The patient with probable ongoing small-bowel obstruction versus ileus. Laura nue n.p.o. and fluids. 2. Elevation in liver function tests of unclear etiology. Obtain abdominal ultrasound. 3. Elevation in lipase. Again, unclear etiology. Obtain abdominal ultrasound for further clarifica tion. 4. Colon cancer, currently receiving chemotherapy. 5. Renal: Patient with acute renal failure most likely related to hypovolemia. Continue IV fluids and monitor. 6. Prophylaxis with Lovenox. Dictated By: SUZANNA ECHOLS MD RER/NTS Conf#: [id number] DID#: [id number]
[2018-12-09] MEDS: D5W-0.45 NACL + KCL 40 MEQ 1,000 ML IV SCH ×3 (05:53→12:46)
[2018-12-09 07:17] VITALS: BP 131/68; PULSE 98; RESP 19
[2018-12-09] MEDS: ENOXAPARIN 40 MG/0.4 ML SYG SC SCH (09:22)
[2018-12-09] MEDS ORDERED: IOHEXOL 300MG/ML 150 ML BTL ONE (14:28)
--- NOTE | 2018-12-09 16:29 | PN ---
Date/Time of Note Date/Time of Note DATE: 12/09/18 TIME: 16:29 Assessment/Plan VTE Prophylaxis Risk score (from Ns)>0 risk: 5 SCD applied (from Ns): No SCD contraindicated: other Pharmacological prophylaxis: LMWH Lines/Catheters IV Catheter Type (from [facility]): Peripheral IV Assessment/Plan Hospital Course This is a 67 male who is S/p Open right hemicolectomy converted from laparoscopy for Small bowel obstruction secondary to right colonic mass on 09/[address] Gregory and has received two sessions of chemotherapy for colon Ca and follows Dr Nahs of oncology . He was admitted to [facility] on 12/05 and underwent Exploratory laparotomy and repair of small bowel obstruction secondary to recurrent right inguinal hernia with extra large plug on 12/[address] Knapp . He was subsequently discharged home on 12/[address] Garcia . He retuned to the ER with intractable vomiting and abdominal pain. He was noted to have acute kidneny injury secondary to hypovolemia and dehydration which improved . He developed diarrhea on 12/09 AM . I asked Dr Huggins of general surgery to see him . I ordered small bowel follow through which showed resolution of obstruction. On admission lipase noted to be elevated without radiographic evidence of pancreatitis. Abdominal US is showing a 3.3 Cm hypoechoic density suggestive of metastatic disease . I personally called and informed Dr Allison of this fondkaiser who will be following up with the patient in this regard. #SBO , resolved # Pancreatitis? based on elevated Lipase, no radiographic evidence on CT , US shows sludge unknown etiology , check TG , MRCP # SHEILA , prerenal in nature , continue IVF # Colon CA/ Hepatic lesion concerning for metastatic disease , MRCP , Oncology follow up # Mildly elevated liver enzymes , most likely due to N&V, monitor #Hypovolemic hyponatremia , change IVF to NS Plan - pain and nausea management - CLD and advance as tolerated - IVF (change to NS given hyponatremia) and monitor Cr , Na , - Monitor Lipase - Awaiting gen surgery evaluation - outpatient follow up in regards to colon ca and the hepatic lesion , rule out metastatic disease - PPX: Pepcid and LMWH Result Diagram: 12/09/18 0444 12/09/18 0444 Results 24hrs Laboratory Tests Test 12/08/18 20:17 12/09/18 04:44 12/09/18 06:00 White Blood Count 11.8 #H 10.0 Red Blood Count 5.50 5.15 Hemoglobin 16.2 15.1 Hematocrit 47.5 44.6 Mean Corpuscular Volume 86.4 86.6 Mean Corpuscular Hemoglobin 29.5 29.3 Mean Corpuscular 34.1 33.9 Hemoglobin Concent Red Cell Distribution Width 20.0 H 19.3 H Platelet Count 191 189 Mean Platelet Volume 9.7 9.8 Immature Granulocytes % 0.700 H 0.800 H Neutrophils % 60.7 Segmented Neutrophils 47 % (Manual) Band Neutrophils % (Manual) 2 Lymphocytes % 21.6 Lymphocytes % (Manual) 32 Reactive Lymphocytes 2 H % (Manual) Monocytes % 15.6 H Monocytes % (Manual) 17 H Eosinophils % 0.7 Eosinophils % (Manual) 1 Basophils % 0.6 Basophils % (Manual) 1 Nucleated Red Blood Cells % 0.3 H 0.2 H Immature Granulocytes # 0.080 H 0.080 H Neutrophils # 6.1 Neutrophils # (Manual) 5.6 Band Neutrophils # 0.2 Lymphocytes (Manual) 3.7 H Lymphocytes # 2.2 Reactive Lymphocytes # 0.2 H Monocytes # 1.6 H Monocytes # (Manual) 2.0 H Eosinophils # 0.1 Basophils # 0.1 Basophils # (Manual) 0.1 H Nucleated Red Blood Cells # 0.0 Giant Platelets 1 H Anisocytosis 1+ Macrocytosis 1+ Sodium Level 132 L 131 L Potassium Level 3.4 L 3.7 Chloride Level 82 #L 83 L Carbon Dioxide Level 32 H 38 H Anion Gap 18 #H 10 # Blood Urea Nitrogen 45 #H 47 H Creatinine 1.67 H 1.25 H Est Glomerular Filtrat 42 L 58 L Rate mL/min Glucose Level 148 128 Calcium Level 10.2 9.7 Total Bilirubin 2.5 H 2.5 H Direct Bilirubin 0.00 0.00 Indirect Bilirubin 2.5 H 2.5 H Aspartate Amino 89 H 60 H Transf (AST/SGOT) Alanine 106 H 90 H Aminotransferase (ALT/SGPT) Alkaline Phosphatase 130 H 117 Total Protein 9.6 H 8.2 H Albumin 5.0 H 4.4 Globulin 4.60 H 3.80 H Albumin/Globulin Ratio 1.08 1.15 Lipase 761 H 717 H Urine Color YELLOW Urine Clarity SLIGHTLY CLOUDY A Urine pH 5.0 Urine Specific [place] 1.026 Urine Ketones NEGATIVE Urine Nitrite NEGATIVE Urine Bilirubin NEGATIVE Urine Urobilinogen NEGATIVE Urine Leukocyte Esterase NEGATIVE Urine Microscopic RBC 1 Urine Microscopic WBC 2 Urine Bacteria FEW A Urine Mucus FEW A Urine Hemoglobin 2+ H Urine Glucose NEGATIVE Urine Total Protein 1+ H Exam/Review of Systems Exam Vitals Vital Signs Date Temp Pulse Resp B/P (MAP) Pulse Ox O2 O2 Flow FiO2 Time Delivery Rate 12/09/18 98.1 98 19 131/68 96 07:17 (89) 12/08/18 Room Air 2.0 23:52 Nasal Cannula Intake and Output 12/08/18 12/08/18 12/09/18 1515:00 23:00 07:00 IntakeIntake Total 1000 ml BalanceBalance 1000 ml Constitutional: alert, oriented, well developed Head: normocephalic, atraumatic Eyes: nl conjunctiva, EOMI, nl lids, nl sclera, PERRL ENMT: nl external ears & nose, nl lips & teeth, nl nasal mucosa & septum Neck: supple, non-tender Respiratory: clear to auscultation, normal air movement Cardiovascular: regular rate and rhythm, nl pulses Gastrointestinal: soft, nl liver, spleen, tender (mildly in the epigastrium ); No distended, No rebound or guarding Extremities: normal pulses Neurological: CONTENT SPECIALIST II-XII intact, nl mental status, nl speech, nl strength Results Results 24hrs Laboratory Tests Test 12/08/18 20:17 12/09/18 04:44 12/09/18 06:00 White Blood Count 11.8 #H 10.0 Red Blood Count 5.50 5.15 Hemoglobin 16.2 15.1 Hematocrit 47.5 44.6 Mean Corpuscular Volume 86.4 86.6 Mean Corpuscular Hemoglobin 29.5 29.3 Mean Corpuscular 34.1 33.9 Hemoglobin Concent Red Cell Distribution Width 20.0 H 19.3 H Platelet Count 191 189 Mean Platelet Volume 9.7 9.8 Immature Granulocytes % 0.700 H 0.800 H Neutrophils % 60.7 Segmented Neutrophils 47 % (Manual) Band Neutrophils % (Manual) 2 Lymphocytes % 21.6 Lymphocytes % (Manual) 32 Reactive Lymphocytes 2 H % (Manual) Monocytes % 15.6 H Monocytes % (Manual) 17 H Eosinophils % 0.7 Eosinophils % (Manual) 1 Basophils % 0.6 Basophils % (Manual) 1 Nucleated Red Blood Cells % 0.3 H 0.2 H Immature Granulocytes # 0.080 H 0.080 H Neutrophils # 6.1 Neutrophils # (Manual) 5.6 Band Neutrophils # 0.2 Lymphocytes (Manual) 3.7 H Lymphocytes # 2.2 Reactive Lymphocytes # 0.2 H Monocytes # 1.6 H Monocytes # (Manual) 2.0 H Eosinophils # 0.1 Basophils # 0.1 Basophils # (Manual) 0.1 H Nucleated Red Blood Cells # 0.0 Giant Platelets 1 H Anisocytosis 1+ Macrocytosis 1+ Sodium Level 132 L 131 L Potassium Level 3.4 L 3.7 Chloride Level 82 #L 83 L Carbon Dioxide Level 32 H 38 H Anion Gap 18 #H 10 # Blood Urea Nitrogen 45 #H 47 H Creatinine 1.67 H 1.25 H Est Glomerular Filtrat 42 L 58 L Rate mL/min Glucose Level 148 128 Calcium Level 10.2 9.7 Total Bilirubin 2.5 H 2.5 H Direct Bilirubin 0.00 0.00 Indirect Bilirubin 2.5 H 2.5 H Aspartate Amino 89 H 60 H Transf (AST/SGOT) Alanine 106 H 90 H Aminotransferase (ALT/SGPT) Alkaline Phosphatase 130 H 117 Total Protein 9.6 H 8.2 H Albumin 5.0 H 4.4 Globulin 4.60 H 3.80 H Albumin/Globulin Ratio 1.08 1.15 Lipase 761 H 717 H Urine Color YELLOW Urine Clarity SLIGHTLY CLOUDY A Urine pH 5.0 Urine Specific [place] 1.026 Urine Ketones NEGATIVE Urine Nitrite NEGATIVE Urine Bilirubin NEGATIVE Urine Urobilinogen NEGATIVE Urine Leukocyte Esterase NEGATIVE Urine Microscopic RBC 1 Urine Microscopic WBC 2 Urine Bacteria FEW A Urine Mucus FEW A Urine Hemoglobin 2+ H Urine Glucose NEGATIVE Urine Total Protein 1+ H Medications Medication Current Medications Enoxaparin Sodium (Lovenox) 40 mg DAILY SC Last administered on 12/09/18at 09:22; Admin Dose 40 MG; Start 12/09/18 at 09:00 Hydralazine HCl (Apresoline) 25 mg Q6H PRN PO sbp>160; Start 12/09/18 at 02:00 Ondansetron HCl (Zofran Inj) 4 mg Q4H PRN IV NAUSEA AND/OR VOMITING; Start 12/09/18 at 02:00 Morphine Sulfate (morphine) 4 mg Q3H PRN IV SEVERE PAIN LEVEL 7-10; Start 12/09/18 at 02:00 Acetaminophen (Tylenol Tab) 650 mg Q4H PRN PO MILD PAIN(1-3)OR ELEVATED TEMP; Start 12/09/18 at 02:00 Potassium Chloride/Dextrose/ Sod Cl 1,000 ml @ 125 mls/hr Q8H IV Last administered on 12/09/18at 12:46; Admin Dose 125 MLS/HR; Start 12/09/18 at 02:00 LORENZO JUAREZ MD Dec 09, 2018 16:29
[2018-12-09] MEDS: SOD CHLORIDE 0.9% 1,000 ML IV SCH (17:07)
[2018-12-09 20:25] VITALS: BP 122/70; PULSE 83; RESP 19
[2018-12-09] MEDS: FAMOTIDINE 20 MG INJ IV SCH (21:02)
[2018-12-10 02:39] VITALS: BP 106/57; PULSE 75; RESP 18
[2018-12-10] MEDS: SOD CHLORIDE 0.9% 1,000 ML IV SCH (06:51)
[2018-12-10 07:34] VITALS: BP 112/63; PULSE 76; RESP 18
[2018-12-10] MEDS: FAMOTIDINE 20 MG INJ IV SCH (08:46)
[2018-12-10] MEDS: ENOXAPARIN 40 MG/0.4 ML SYG SC SCH (08:47)
--- NOTE | 2018-12-10 11:46 | PDOCDIS ---
Discharge Instructions CONDITION Gail Patient Condition: Ravinder Stable HOME CARE INSTRUCTIONS: Gail Diet Instructions: Ravinder GI Soft FOLLOW UP/APPOINTMENTS Follow-up Plan Follow up with Oncology in the next 3 days Follow up with PCP in 7 days REFERRALS Gail Referring Provider: RON Yañez ALI MD Dec 10, 2018 11:46
--- NOTE | 2018-12-10 11:47 | DS ---
Date/Time of Note Date/Time of Note DATE: 12/10/18 TIME: 11:47 Discharge Summary Admission/Discharge Info Admit Date/Time Dec 08, 2018 at 21:39 Discharge Date/Time Patient Condition: Stable Hospital Course This is a 67 male who is S/p Open right hemicolectomy converted from laparoscopy for Small bowel obstruction secondary to right colonic mass on 09/[address] Gregory and has received two sessions of chemotherapy for colon Ca and follows Dr Nash of oncology . He was admitted to [facility] on 12/05 and underwent Exploratory laparotomy and repair of small bowel obstruction secondary to recurrent right inguinal hernia with extra large plug on 12/[address] Knapp . He was subsequently discharged home on 12/[address] Adame . He retuned to the ER with intractable vomiting and abdominal pain. He was noted to have acute kidneny injury secondary to hypovolemia and dehydration which improved . He developed diarrhea on 12/09 AM . I asked Dr Huggins of general surgery to see him . I ordered small bowel follow through which showed resolution of obstruction. On admission lipase noted to be elevated without radiographic evidence of p ancreatitis. Abdominal US is showing a 3.3 Cm hypoechoic density suggestive of metastatic disease . I personally called and informed Dr Allison of this finding who will be following up with the patient in this regard. #SBO , resolved , tolerated advancement of diet and had several BMs # Pancreatitis? based on elevated Lipase, no radiographic evidence on CT , US shows sludge unknown etiology ,TG , MRCP unremarkable # SHEILA , prerenal in nature , improved with IVF # Colon CA/ Hepatic lesion concerning for metastatic disease , , Oncology follow up as outpatient # Mildly elevated liver enzymes , most likely due to N&V, #Hypovolemic hyponatremia , improved with NS Home Meds Active Scripts Ondansetron Hcl* (Zofran*) 4 Mg Tab, 4 MG PO Q6H PRN for NAUSEA AND OR VOMITING for 10 Days, TAB Prov:LOY ADAME MD 12/07/18 Reported Medications Polyethylene Glycol* (Miralax*) 17 Gm Powd.pack, 17 GM PO DAILY, #30 PACKET 12/05/18 Discontinued Reported Medications Prochlorperazine* (Prochlorperazine*) 10 Mg Tablet, 10 MG PO Q8H PRN for NAUSEA, TAB 12/05/18 Sennosides* (Senna Lax*) 8.6 Mg Tablet, 2 TAB PO DAILY, TAB 12/05/18 Capecitabine* (Xeloda*) 500 Mg Tablet, 2000 MG PO BID, TBS START DATE 11/26/18, TAKE FOR 14 DAYS AND OFF FOR 7 DAYS 12/05/18 Follow-up Plan Follow up with Oncology in the next 3 days Follow up with PCP in 7 days Primary Care Provider Not On Staff Doctor Pending Labs Laboratory Tests Test 12/10/18 04:58 White Blood Count 7.2 10^3/ul (4.8-10.8) Red Blood Count 4.46 10^6/ul (4.70-6.10) Hemoglobin 13.4 g/dl (14.0-18.0) Hematocrit 39.0 % (42.0-52.0) Mean Corpuscular Volume 87.4 fl (82.0-101.0) Mean Corpuscular Hemoglobin 30.0 pg (29.0-33.0) Mean Corpuscular Hemoglobin Concent 34.4 g/dl (32.0-37.0) Red Cell Distribution Width 19.3 % (11.5-14.5) Platelet Count 157 10^3/UL (140-415) Mean Platelet Volume 10.2 fl (7.4-10.4) Immature Granulocytes % 1.000 % (0.001-0.429) Neutrophils % 48.1 % (39.0-77.0) Lymphocytes % 35.0 % (15.0-51.0) Monocytes % 13.8 % (0.0-11.0) Eosinophils % 1.7 % (0.0-7.0) Basophils % 0.4 % (0.0-2.0) Nucleated Red Blood Cells % 0.0 /100WBC (0.0-0.0) Immature Granulocytes # 0.070 10^3/ul (0.0-0.031) Neutrophils # 3.5 10^3/ul (1.6-7.5) Lymphocytes # 2.5 10^3/ul (0.8-2.9) Monocytes # 1.0 10^3/ul (0.3-0.9) Eosinophils # 0.1 10^3/ul (0.0-0.5) Basophils # 0.0 10^3/ul (0.0-0.1) Nucleated Red Blood Cells # 0.0 10^3/ul (0.0-0.0) Sodium Level 134 mmol/L (135-144) Potassium Level 3.1 mmol/L (3.5-5.1) Chloride Level 96 mmol/L (97-110) Carbon Dioxide Level 32 mmol/L (21-31) Anion Gap 6 (5-13) Blood Urea Nitrogen 22 mg/dl (7-20) Creatinine 0.79 mg/dl (0.61-1.24) Est Glomerular Filtrat Rate mL/min > 60 mL/min (>60) Glucose Level 94 mg/dl (70-220) Calcium Level 8.4 mg/dl (8.4-10.2) Phosphorus Level 2.7 mg/dl (2.5-4.9) Magnesium Level 2.5 mg/dl (1.7-2.5) Total Bilirubin 1.5 mg/dl (0.2-1.3) Direct Bilirubin 0.00 mg/dl (0.00-0.20) Indirect Bilirubin 1.5 mg/dl (0-1.1) Aspartate Amino Transf (AST/SGOT) 43 IU/L (15-46) Alanine Aminotransferase (ALT/SGPT) 77 IU/L (13-69) Alkaline Phosphatase 93 IU/L (42-121) Total Protein 6.5 g/dl (6.1-8.1) Albumin 3.4 g/dl (3.3-4.9) Globulin 3.10 g/dl (1.3-3.2) Albumin/Globulin Ratio 1.09 Triglycerides Level 136 mg/dl (0-149) Cholesterol Level 131 mg/dl (100-200) LDL Cholesterol, Calculated 49 mg/dl HDL Cholesterol 55 mg/dl (30-78) Cholesterol/HDL Ratio 2.3 RATIO Lipase 998 U/L (23-300) LORENZO JUAREZ MD Dec 10, 2018 11:47
== END 2018-12-10 14:03 | disposition home or self-care (01) | DRG 388 ==
LOC: E/R 18:40 → MS1 21:39
PROVIDERS: ADMIT Legal Medicine; ATTEND Legal Medicine
DX: K56.609 Unspecified intestinal obstruction, unspecified as to partial versus complete obstruction (principal); K85.90 Acute pancreatitis without necrosis or infection, unspecified; C18.9 Malignant neoplasm of colon, unspecified; N17.9 Acute kidney failure, unspecified; E87.1 Hypo-osmolality and hyponatremia; E86.0 Dehydration; E86.1 Hypovolemia; E87.6 Hypokalemia; J44.9 Chronic obstructive pulmonary disease, unspecified; Z87.891 Personal history of nicotine dependence; Z90.49 Acquired absence of other specified parts of digestive tract
CPT/HCPCS: 36415; 74176; 74181; 74250; 76705; 80053; 80061; 81001; 83690; 83735; 84100; 85025; 87075; 87081; 96361; 96374; J1650; J2405; J3480; J7030; J7120; Q9967

== ENCOUNTER 2019-03-01 10:19 | Emergency (ER) | payer OTHER ==
[~2019-03-01] VITALS: Ht 172.7 cm; Wt 66.4 kg
[~2019-03-01 10:19] MED LIST changes: -CAPE500T17 PO; +CLIN300C10 PO; +NAPR-985 PO; -ONDA4TAB13 PO; -POLY17PO6 PO; -PROC10TA10 PO; -SENN-120 PO
[2019-03-01 10:24] VITALS: Ht 172.7 cm; Wt 66.4 kg
[2019-03-01] MEDS ORDERED: SOD CHLORIDE 0.9% 1,000 ML IV STA (10:48)
[2019-03-01] MEDS ORDERED: KETOROLAC 30 MG INJ IV STA (10:48)
[2019-03-01] MEDS ORDERED: CLINDAMYCIN 600 MG/D5W (PMX) 50 ML IVPB SCH (11:00)
[2019-03-01 12:13] VITALS: BP 122/67; PULSE 77; RESP 20
== END 2019-03-01 12:14 | disposition home or self-care (01) ==
LOC: FTE 10:19
DX: J36 Peritonsillar abscess (principal); Z85.038 Personal history of other malignant neoplasm of large intestine; Z87.891 Personal history of nicotine dependence
CPT/HCPCS: 96365; 96375; J1885; J7030; Z7502; Z7610